=== PATIENT | male | born 1945 | race Caucasian/White ===

== ENCOUNTER 2022-01-23 17:07 | Observation (INO) ==
--- NOTE | 2022-01-23 17:57 | Emergency Department Note ---
Impression & Plan Mood disorder, Hyponatremia ED Provider Note INFORMANT: Patient and ED PROVIDER(S): Doni Kruger MD CHIEF COMPLAINT: Severe depression PLAN: Disposition: Admission to internal medicine Condition: Good Outpatient prescription management: none Referral: None MEDICAL DECISION MAKING: Patient presented because of complaints of severe depression. He had a medical work-up initiated including head CT, chest x-ray, EKG and blood work. Toxicology screen and urinalysis performed as well. The patient's head CT and chest x-ray were unremarkable. ECG did not reveal any acute findings. The patient had unremarkable laboratory studies except for his sodium which was noted to be low. Patient noted a remote history of hyponatremia albeit just under normal per the . In light of his symptoms and findings it was felt that the patient would benefit from medicine admission and psychiatric consultation as he would not be eligible for direct inpatient psychiatric admission in light of the hyponatremia. Consultation was made with Dr. Luis Miguel Corrales of the [facility] service. Patient was evaluated in the ER for further management. Triage Nursing notes reviewed and agree them. Vital Signs: reviewed and remarkable for mild hypertension Differential diagnosis: Mood disorder, infection, hypoglycemia, electrolyte abnormalities, cardiac sources, intracerebral event, toxicologic, trauma, neurologic, as well as other pathologies. Diagnostics interpreted by me: ECG: Twelve-lead ECG reveals normal sinus rhythm at [address] elevation or depression. No PACs or PVCs. Cardiac Monitoring: none Imaging studies: Head CT: A noncontrast CT scan of the head was performed and was negative for tumor, fracture, intracranial hemorrhage, or other acute pathology. Chest x-ray. Findings: A chest x-ray was performed and revealed no pneumothorax, effusion, infiltrate, pulmonary edema, free air under the diap hragm, or wide mediastinum. Impression: No acute disease. HPI: The patient is a 76 year old male who presents to the Emergency Room with complaints of severe depression. This started a few months ago and is worsening over the last week. The patient also notes the following associated symptoms, poor concentration, no energy, poor sleep, decreased appetite, fleeting thoughts of SI, being afraid to be alone. The patient has been taking Zoloft unsuccessf ully for relieving factors. Current pain is rated as 0/10. pt denies LOC, headache, fevers, chills, diaphoresis, visual changes, neck pain, chest pain, breathing difficulties, nausea, vomiting, abdominal pain, back pain, melena, hematochezia, urinary symptoms, numbness, weakness, lymphadenopathy, rash, or other complaints. ROS: See above HPI for pertinent positives & negatives. A total of 10 systems reviewed and were otherwise negative. PAST MEDICAL HISTORY:See Below , legally blind, optic neuritis, A. fib, hypertension PAST SURGICAL HISTORY:See Below, FAMILY HISTORY:See Below SOCIAL HISTORY:See Below, , retired HOME MEDICATIONS:See Below ALLERGIES:See Below VITALS:See Below PHYSICAL EXAMINATION: GENERAL: Awake, alert, well-appearing, in no distress HENT: Normocephalic, atraumatic. Oropharynx unremarkable. EYES: Normal conjunctiva. Sclera non-icteric. NECK: Inspection normal. Non-tender. Supple. No nuchal rigidity. FROM. No mas ses. RESPIRATORY: Clear to auscultation. No wheezes. No rales. Normal respiratory effort. CARDIAC: Normal rate. Normal rhythm. No murmurs. No rubs. Extremities warm and well perfused. Pulses equal. No JVD. GI: Soft, non-distended. No tenderness to palpation. No rebound or guarding. No masses. RECTAL: Deferred. MUSCULOSKELETAL: Atraumatic. Chest examination reveals no tenderness. The back is symmetrical on inspection without obvious abnormality. There is no CVA tenderness to palpation. No joint edema. LOWER EXTREMITIES: Calves are equal size bilaterally and non-tender. No edema. No discoloration. NEURO: Normal sensorium. No sensory or motor deficits noted. SKIN: No rash or jaundice noted. PSYCH: Depressed mood and flat affect. Vague SI. No hallucinations or delusions. Doni Kruger MD Past Med/Surg History Medical History (Updated 01/24/22 @ 00:26 by Doni Kruger MD) AAION (arteritic anterior ischemic optic neuropathy), both eyes Afib dx 2013 > no pacer > med controlled > Eliquis for this as well Anemia Anticoagulant long-term use Anxiety Asthma well controlled per pt > no res inh BPH (benign prostatic hyperplasia) Excessive daytime sleepiness Glaucoma Hiatal hernia HTN (hypertension) Mitral valve regurgitation follows with Dr. Peacock Osteoporosis PFO (patent foramen ovale) pt unaware of this Sleep apnea cpap Surgical History History of cataract surgery History of colonoscopy History of tooth extraction Right wrist fracture with surgical correction Status post right shoulder hemiarthroplasty Family History Father Hypertension Mother Pacemaker Uncle Colon cancer Grandmother Diabetes Social History Smoking Status: Never smoker Second Hand Exposure: No; Hx Alcohol Use: No Hx Substance Use: No Preferred Language: Kyrgyz Communication Ability: Effective Fur Blower Operator Required: No Beliefs That Will Affect Care: None marital status: Current Living Situation: Spouse current occupational status: retired Feels Safe at Home: Yes Assistive Devices: Cane, CPAP, Glasses and Hearing Aid - Left Allergies Allergies Allergy/AdvReac Type Severity Reaction Status Date / Time alendronate sodium Allergy Rash Verified 10/12/21 06:25 Home Meds Home Medications Medication Instructions Recorded Confirmed alprazolam 0.25 mg tablet 0.25 mg PO DAILY PRN Anxiety 05/04/21 01/23/22 apixaban 5 mg tablet (Eliquis) 5 mg PO BID 05/04/21 01/23/22 calcium citrate 315 mg 1 tab PO QAM 05/04/21 01/23/22 calcium-vitamin D3 6.25 mcg (250 unit) tablet (Citracal + Vitamin D Maximum) clopidogrel 75 mg tablet 75 mg PO QAM 05/04/21 01/23/22 dronedarone 400 mg tablet (Multaq) 400 mg PO BID 05/04/21 01/23/22 latanoprost 0.005 % eye drops 1 drp ophthalmic (eye) PM 05/04/21 01/23/22 montelukast 10 mg tablet 10 mg PO QAM 05/04/21 01/23/22 nystatin-triamcinolone 100,000 1 applic topical DAILY PRN Rash 05/04/21 01/23/22 unit/g-0.1 % topical cream pentoxifylline 400 mg 400 mg PO BID 05/04/21 01/23/22 tablet,extended release rosuvastatin 10 mg tablet 10 mg PO HS 05/04/21 01/23/22 sertraline 100 mg tablet 50 mg PO QAM 05/04/21 01/23/22 tamsulosin 0.4 mg capsule 0.4 mg PO HS 05/04/21 01/23/22 vit 1 cap PO BID 05/04/21 01/23/22 C,E,zinc,Qt-kaycz-7-lutein-zeaxanthin 250 mg-2.5 mg-0.5 mg capsule benazepril 40 mg tablet 20 mg PO BID 09/16/21 01/23/22 coenzyme Q10 100 mg capsule (Co 100 mg PO QAM 09/16/21 01/23/22 Q-10) melatonin 3 mg tablet 3 mg PO HS 09/16/21 01/23/22 metoprolol succinate 25 mg 25 mg PO PM 09/16/21 01/23/22 tablet,extended release 24 hr omega-3 fatty acids 1,000 mg PO QAM 09/16/21 01/23/22 omeprazole 40 mg capsule,delayed 40 mg PO HS 09/16/21 01/23/22 release zinc oxide applic topical BID 01/23/22 Results & Data (ED) Vital Signs Vital Signs - 24 hr 01/23/22 17:11 01/23/22 19:08 Temperature 36.7 C Temperature Source Temporal Artery Scan Pulse Rate 76 Pulse Rate [Apical] 66 Pulse Rhythm Regular Pulse Rhythm [Apical] Regular Pulse Strength Normal Pulse Strength [Apical] Normal Respiratory Rate 22 18 Respiratory Effort / Characteristics Non-Labored Spontaneous Non-Labored Respiratory Depth Normal Normal Respiratory Pattern Regular Regular Blood Pressure 154/95 H Blood Pressure [Right Arm] 164/83 H Blood Pressure Mean 114 Blood Pressure Mean [Right Arm] 110 Blood Pressure Position Sitting Blood Pressure Position [Right Arm] Lying Pulse Oximetry 97 96 Oxygen Delivery Method Room Air Room Air Sepsis Recent Fever Within 48 Hours No Sepsis New/Unexplained Change in Mental Status N/A Sepsis Action Taken by Nursing No Action Required Laboratory Data Result diagrams: 01/23/22 17:55 01/23/22 17:55 Lab Results 01/23/22 01/23/22 01/23/22 Range/Units 17:30 17:30 17:30 WBC (4.8-10.8) K/ul RBC (4.63-6.08) M/uL Hgb (14.0-18.0) g/dl Hct (40.1-51.0) % MCV (80.0-100.0) fL MCH (25.0-34.0) pg MCHC (32.0-36.0) g/dL RDW Std Deviation (36.4-46.3) fL RDW Coeff of David (11.5-14.5) % Plt Count (130-400) K/uL MPV (9.4-12.4) fL Immature Gran % (Auto) % Neut % (Auto) % Lymph % (Auto) % [place] % (Auto) % Eos % (Auto) % Baso % (Auto) % Neut # (Auto) (1.4-6.5) K/uL Lymph # (Auto) (1.2-3.4) K/uL [place] # (Auto) (0.24-0.82) K/uL Eos # (Auto) (0-0.50) K/uL Baso # (Auto) (0-0.2) K/uL Immature Gran # (Auto) (0.00-0.02) K/uL Sodium (136-145) mmol/L Potassium (3.5-5.1) mmol/L Chloride (98-107) mmol/L Carbon Dioxide (21-32) mmol/L Anion Gap (3-11) BUN (6-23) mg/dl Creatinine (0.6-1.4) mg/dl Est Cr Clr Drug Dosing ml/min Est GFR ( Amer) ml/min Est GFR (Non-Af Amer) ml/min BUN/Creatinine Ratio (10-20) Glucose (70-99(Fasting)) mg/dl Osmolality (280-300) mOsm/kg Calcium (8.5-10.1) mg/dl Total Bilirubin (0.2-1.0) mg/dl AST (13-39) U/L ALT (7-52) U/L Alkaline Phosphatase (34-104) U/L Total Protein (6.0-8.3) gm/dl Albumin (3.4-5.0) gm/dl Globulin (2.5-4.0) gm/dl Albumin/Globulin Ratio (0.9-2) TSH (0.300-4.500) uIu/ml Urine Color Yellow Urine Appearance Clear (Clear) Urine pH 7.0 (4.5-7.5) Ur Specific [place] 1.012 (1.000-1.030) Urine Protein Negative (Negative) Urine Glucose (UA) Negative (Negative) Urine Ketones Negative (Negative) Urine Blood Negative (Negative) Urine Nitrite Negative (Negative) Urine Bilirubin Negative (Negative) Urine Urobilinogen Negative (Negative) Ur Leukocyte Esterase Trace H (Negative) Urine WBC (Auto) 1-5 (0-5) /hpf Urine RBC (Auto) 5-10 H (0-4) /hpf U Hyaline Cast (Auto) 0 (0-5) /lpf U Epithel Cells (Auto) 0-5 (0-5) /lpf Urine Bacteria (Auto) Negative (Negative) Urine Osmolality (500-800) mOsm/kg Ur Random Creatinine 59.4 mg/dl Ur Random Sodium 102 mmol/L Salicylates (3.0-30) mg/dl Urine Opiates Screen Neg (Neg) Ur Methadone, Qual Neg (Neg) Acetaminophen (10-30) ug/ml Urine Barbiturates Neg (Neg) Ur Phencyclidine (PCP) Neg (Neg) U Amphetamin/Meth Scrn Neg (Neg) MDMA (Ecstasy) Screen Neg (Neg) U Benzodiazepines Scrn Neg (Neg) Ur Cocaine Metabolite Neg (Neg) U Marijuana (THC) Screen Neg (Neg) Ethyl Alcohol mg/dL (<10.0) mg/dl SARS-CoV-2, RNA, NAAT (NEGATIVE) 01/23/22 01/23/22 01/23/22 Range/Units 17:30 17:45 17:55 WBC 8.68 (4.8-10.8) K/ul RBC 4.40 L (4.63-6.08) M/uL Hgb 13.1 L (14.0-18.0) g/dl Hct 37.0 L (40.1-51.0) % MCV 84.1 (80.0-100.0) fL MCH 29.8 (25.0-34.0) pg MCHC 35.4 (32.0-36.0) g/dL RDW Std Deviation 43.9 (36.4-46.3) fL RDW Coeff of David 14.4 (11.5-14.5) % Plt Count 159 (130-400) K/uL MPV 10.8 (9.4-12.4) fL Immature Gran % (Auto) 0.5 % Neut % (Auto) 69.9 % Lymph % (Auto) 21.4 % [place] % (Auto) 6.2 % Eos % (Auto) 1.7 % Baso % (Auto) 0.3 % Neut # (Auto) 6.06 (1.4-6.5) K/uL Lymph # (Auto) 1.86 (1.2-3.4) K/uL [place] # (Auto) 0.54 (0.24-0.82) K/uL Eos # (Auto) 0.15 (0-0.50) K/uL Baso # (Auto) 0.03 (0-0.2) K/uL Immature Gran # (Auto) 0.04 H (0.00-0.02) K/uL Sodium (136-145) mmol/L Potassium (3.5-5.1) mmol/L Chloride (98-107) mmol/L Carbon Dioxide (21-32) mmol/L Anion Gap (3-11) BUN (6-23) mg/dl Creatinine (0.6-1.4) mg/dl Est Cr Clr Drug Dosing ml/min Est GFR ( Amer) ml/min Est GFR (Non-Af Amer) ml/min BUN/Creatinine Ratio (10-20) Glucose (70-99(Fasting)) mg/dl Osmolality (280-300) mOsm/kg Calcium (8.5-10.1) mg/dl Total Bilirubin (0.2-1.0) mg/dl AST (13-39) U/L ALT (7-52) U/L Alkaline Phosphatase (34-104) U/L Total Protein (6.0-8.3) gm/dl Albumin (3.4-5.0) gm/dl Globulin (2.5-4.0) gm/dl Albumin/Globulin Ratio (0.9-2) TSH (0.300-4.500) uIu/ml Urine Color Urine Appearance (Clear) Urine pH (4.5-7.5) Ur Specific [place] (1.000-1.030) Urine Protein (Negative) Urine Glucose (UA) (Negative) Urine Ketones (Negative) Urine Blood (Negative) Urine Nitrite (Negative) Urine Bilirubin (Negative) Urine Urobilinogen (Negative) Ur Leukocyte Esterase (Negative) Urine WBC (Auto) (0-5) /hpf Urine RBC (Auto) (0-4) /hpf U Hyaline Cast (Auto) (0-5) /lpf U Epithel Cells (Auto) (0-5) /lpf Urine Bacteria (Auto) (Negative) Urine Osmolality 408 L (500-800) mOsm/kg Ur Random Creatinine mg/dl Ur Random Sodium mmol/L Salicylates (3.0-30) mg/dl Urine Opiates Screen (Neg) Ur Methadone, Qual (Neg) Acetaminophen (10-30) ug/ml Urine Barbiturates (Neg) Ur Phencyclidine (PCP) (Neg) U Amphetamin/Meth Scrn (Neg) MDMA (Ecstasy) Screen (Neg) U Benzodiazepines Scrn (Neg) Ur Cocaine Metabolite (Neg) U Marijuana (THC) Screen (Neg) Ethyl Alcohol mg/dL (<10.0) mg/dl SARS-CoV-2, RNA, NAAT NEGATIVE (NEGATIVE) 01/23/22 01/23/22 01/23/22 Range/Units 17:55 17:55 17:55 WBC (4.8-10.8) K/ul RBC (4.63-6.08) M/uL Hgb (14.0-18.0) g/dl Hct (40.1-51.0) % MCV (80.0-100.0) fL MCH (25.0-34.0) pg MCHC (32.0-36.0) g/dL RDW Std Deviation (36.4-46.3) fL RDW Coeff of David (11.5-14.5) % Plt Count (130-400) K/uL MPV (9.4-12.4) fL Immature Gran % (Auto) % Neut % (Auto) % Lymph % (Auto) % [place] % (Auto) % Eos % (Auto) % Baso % (Auto) % Neut # (Auto) (1.4-6.5) K/uL Lymph # (Auto) (1.2-3.4) K/uL [place] # (Auto) (0.24-0.82) K/uL Eos # (Auto) (0-0.50) K/uL Baso # (Auto) (0-0.2) K/uL Immature Gran # (Auto) (0.00-0.02) K/uL Sodium 129 L (136-145) mmol/L Potassium 3.8 (3.5-5.1) mmol/L Chloride 98 (98-107) mmol/L Carbon Dioxide 22 (21-32) mmol/L Anion Gap 9 (3-11) BUN 14 (6-23) mg/dl Creatinine 1.08 (0.6-1.4) mg/dl Est Cr Clr Drug Dosing 61.0 ml/min Est GFR ( Amer) 76.3 ml/min Est GFR (Non-Af Amer) 65.9 ml/min BUN/Creatinine Ratio 13.0 (10-20) Glucose 114 H (70-99(Fasting)) mg/dl Osmolality (280-300) mOsm/kg Calcium 9.2 (8.5-10.1) mg/dl Total Bilirubin 0.6 (0.2-1.0) mg/dl AST 17 (13-39) U/L ALT 19 (7-52) U/L Alkaline Phosphatase 73 (34-104) U/L Total Protein 6.7 (6.0-8.3) gm/dl Albumin 4.1 (3.4-5.0) gm/dl Globulin 2.6 (2.5-4.0) gm/dl Albumin/Globulin Ratio 1.6 (0.9-2) TSH 3.489 (0.300-4.500) uIu/ml Urine Color Urine Appearance (Clear) Urine pH (4.5-7.5) Ur Specific [place] (1.000-1.030) Urine Protein (Negative) Urine Glucose (UA) (Negative) Urine Ketones (Negative) Urine Blood (Negative) Urine Nitrite (Negative) Urine Bilirubin (Negative) Urine Urobilinogen (Negative) Ur Leukocyte Esterase (Negative) Urine WBC (Auto) (0-5) /hpf Urine RBC (Auto) (0-4) /hpf U Hyaline Cast (Auto) (0-5) /lpf U Epithel Cells (Auto) (0-5) /lpf Urine Bacteria (Auto) (Negative) Urine Osmolality (500-800) mOsm/kg Ur Random Creatinine mg/dl Ur Random Sodium mmol/L Salicylates < 3.0 L (3.0-30) mg/dl Urine Opiates Screen (Neg) Ur Methadone, Qual (Neg) Acetaminophen < 3 L (10-30) ug/ml Urine Barbiturates (Neg) Ur Phencyclidine (PCP) (Neg) U Amphetamin/Meth Scrn (Neg) MDMA (Ecstasy) Screen (Neg) U Benzodiazepines Scrn (Neg) Ur Cocaine Metabolite (Neg) U Marijuana (THC) Screen (Neg) Ethyl Alcohol mg/dL (<10.0) mg/dl SARS-CoV-2, RNA, NAAT (NEGATIVE) 01/23/22 01/23/22 Range/Units 17:55 17:55 WBC (4.8-10.8) K/ul RBC (4.63-6.08) M/uL Hgb (14.0-18.0) g/dl Hct (40.1-51.0) % MCV (80.0-100.0) fL MCH (25.0-34.0) pg MCHC (32.0-36.0) g/dL RDW Std Deviation (36.4-46.3) fL RDW Coeff of David (11.5-14.5) % Plt Count (130-400) K/uL MPV (9.4-12.4) fL Immature Gran % (Auto) % Neut % (Auto) % Lymph % (Auto) % [place] % (Auto) % Eos % (Auto) % Baso % (Auto) % Neut # (Auto) (1.4-6.5) K/uL Lymph # (Auto) (1.2-3.4) K/uL [place] # (Auto) (0.24-0.82) K/uL Eos # (Auto) (0-0.50) K/uL Baso # (Auto) (0-0.2) K/uL Immature Gran # (Auto) (0.00-0.02) K/uL Sodium (136-145) mmol/L Potassium (3.5-5.1) mmol/L Chloride (98-107) mmol/L Carbon Dioxide (21-32) mmol/L Anion Gap (3-11) BUN (6-23) mg/dl Creatinine (0.6-1.4) mg/dl Est Cr Clr Drug Dosing ml/min Est GFR ( Amer) ml/min Est GFR (Non-Af Amer) ml/min BUN/Creatinine Ratio (10-20) Glucose (70-99(Fasting)) mg/dl Osmolality 269 L (280-300) mOsm/kg Calcium (8.5-10.1) mg/dl Total Bilirubin (0.2-1.0) mg/dl AST (13-39) U/L ALT (7-52) U/L Alkaline Phosphatase (34-104) U/L Total Protein (6.0-8.3) gm/dl Albumin (3.4-5.0) gm/dl Globulin (2.5-4.0) gm/dl Albumin/Globulin Ratio (0.9-2) TSH (0.300-4.500) uIu/ml Urine Color Urine Appearance (Clear) Urine pH (4.5-7.5) Ur Specific [place] (1.000-1.030) Urine Protein (Negative) Urine Glucose (UA) (Negative) Urine Ketones (Negative) Urine Blood (Negative) Urine Nitrite (Negative) Urine Bilirubin (Negative) Urine Urobilinogen (Negative) Ur Leukocyte Esterase (Negative) Urine WBC (Auto) (0-5) /hpf Urine RBC (Auto) (0-4) /hpf U Hyaline Cast (Auto) (0-5) /lpf U Epithel Cells (Auto) (0-5) /lpf Urine Bacteria (Auto) (Negative) Urine Osmolality (500-800) mOsm/kg Ur Random Creatinine mg/dl Ur Random Sodium mmol/L Salicylates (3.0-30) mg/dl Urine Opiates Screen (Neg) Ur Methadone, Qual (Neg) Acetaminophen (10-30) ug/ml Urine Barbiturates (Neg) Ur Phencyclidine (PCP) (Neg) U Amphetamin/Meth Scrn (Neg) MDMA (Ecstasy) Screen (Neg) U Benzodiazepines Scrn (Neg) Ur Cocaine Metabolite (Neg) U Marijuana (THC) Screen (Neg) Ethyl Alcohol mg/dL < 10.0 (<10.0) mg/dl SARS-CoV-2, RNA, NAAT (NEGATIVE) Administered Medications Sodium Chloride (Nss 1000ml) 1,000 mls @ 125 mls/hr IV .Q8H MANJIT Stop: 01/24/22 04:29 Last Admin: 01/23/22 21:22 Dose: 125 mls/hr Documented By: RSL Discontinued Medications Sodium Chloride (Nss 1000ml) 1,000 mls @ 999 mls/hr IV .Q1H1M ONE Stop: 01/23/22 21:05 Last Infusion: 01/23/22 21:22 Dose: 0 mls/hr Documented By: Admin: 01/23/22 20:36 Dose: 999 mls/hr Documented By: KESHAV Imaging Data Radiologist's Impression: Chest X-Ray 01/23/22 17:43 SINGLE VIEW CHEST CLINICAL HISTORY: Depression. FINDINGS: 2 AP, portable, upright chest radiographs are obtained. No prior studies are available for comparison at the time of dictation. The examination is degraded by portable technique and apical lordotic positioning. The heart is enlarged. The pulmonary vasculature is noncongested. There is mild elevation of the right hemidiaphragm and bibasilar atelectasis. The lungs and pleural spaces are otherwise clear. No pneumothorax is seen. The skeletal structures are osteopenic. The bony thorax is grossly intact. A right shoulder arthroplasty is in place. IMPRESSION: Cardiomegaly with no active disease in the chest. ACT 112: Negative or not required by law. Electronically signed by: Reji Crook M.D. 01/23/2022 5:[address] 01/23/22 17:43 CT SCAN OF THE BRAIN WITHOUT IV CONTRAST CLINICAL HISTORY: Depression. COMPARISON STUDY: No priors. TECHNIQUE: Unenhanced axial CT scan of the brain is performed from the vertex to the skull base. A dose lowering technique was utilized adhering to the principles of ALARA. CT DOSE: 614.27 mGy.cm FINDINGS: Brain parenchyma: There is age-related involutional change noting mild subcortical and periventricular microangiopathic disease. There is no hemorrhage, mass effect, or evidence of acute territorial ischemia by CT criteria. Yap-white matter differentiation is preserved. No extra-axial fluid collection is seen. Ventricles, sulci, cisterns: Prominent secondary to involutional change. Intracranial vasculature: There is atherosclerotic calcification of the cavernous carotid arteries. Calvarium: Unremarkable. Sinuses and mastoids: The visualized paranasal sinuses are clear. The mastoid air cells are well pneumatized. Orbits: The bony orbits are grossly intact. There are bilateral ocular lens implants. IMPRESSION: There is no hemorrhage, mass effect, or evidence of acute territorial ischemia by CT criteria. ACT 112: Negative or not required by law. Electronically signed by: Reji Crook M.D. 01/23/2022 6:55 PM Discharge Plan Visit Data Chief Complaint: Mental Health Evaluation Stated Complaint: UNABLE TO EAT/SLEEP, LOST OF INTEREST. POSS MDD ED Provider: Doni Kruger Discharge Problem: Mood disorder, Hyponatremia Patient Disposition: Admitted As Inpatient Discharge Instructions Interventions: ED Discharge Assessment Last Done: 01/23/22 23:00
[2022-01-23 17:58] LABS: Appearance Urine Clear (Clear); Bacteria Urine Automated Negative (Negative); Bilirubin Urine Negative (Negative); Blood Urine Negative (Negative); Cast Urine Automated 0 /lpf (0-5); Color Urine Yellow; Epithelial Cell Urine Auto 0-5 /lpf (0-5); Glucose Urine UA Negative (Negative); Ketones Urine Negative (Negative); Leukocyte Esterase Urine Trace (Negative); Nitrite Urine Negative (Negative); Protein Urine Negative (Negative); Specific Gravity Urine 1.012 (1.000-1.030); Urobilinogen Urine Negative (Negative)
--- NOTE | 2022-01-23 18:00 | XRay Report ---
SINGLE VIEW CHEST CLINICAL HISTORY: Depression. FINDINGS: 2 AP, portable, upright chest radiographs are obtained. No prior studies are available for comparison at the time of dictation. The examination is degraded by portable technique and apical abbie dotic positioning. The heart is enlarged. The pulmonary vasculature is noncongested. There is mild e levation of the right hemidiaphragm and bibasilar atelectasis. The lungs and pleural spaces are other ramirez clear. No pneumothorax is seen. The skeletal structures are osteopenic. The bony thorax is gross ly intact. A right shoulder arthroplasty is in place. IMPRESSION: Cardiomegaly with no active disease in the chest. ACT 112: Negative or not required by law. Electronically signed by: Reji Crook M.D. 01/23/2022 5:59 PM
[2022-01-23 18:14] LABS: Hemoglobin 13.1 g/dl (14.0-18.0); Mean Corpuscular Hemoglobin 29.8 pg (25.0-34.0); Mean Corpuscular Hgb Conc 35.4 g/dL (32.0-36.0); Mean Corpuscular Volume 84.1 fL (80.0-100.0); Mean Platelet Volume 10.8 fL (9.4-12.4); Platelet Count 159 K/uL (130-400); RDW Coefficient of Variation 14.4 % (11.5-14.5); RDW Standard Deviation 43.9 fL (36.4-46.3); White Blood Count 8.68 K/ul (4.8-10.8)
[2022-01-23 18:15] LABS: Amphetamines+Metham, Urine Neg (Neg); Barbiturates, Urine Neg (Neg); Benzodiazepine, Urine Neg (Neg); Cocaine, Urine Neg (Neg); MDMA (Ecstacy), Urine Neg (Neg); Methadone, Urine Neg (Neg); Opiate, Urine Neg (Neg); Phencyclidine, Urine Neg (Neg)
[2022-01-23 18:30] LABS: Albumin Globulin Ratio 1.6 (0.9-2); Albumin Level 4.1 gm/dl (3.4-5.0); Bilirubin,Total 0.6 mg/dl (0.2-1.0); Calcium 9.2 mg/dl (8.5-10.1); Est GFR (African American) 76.3 ml/min; Est GFR (Non-African American) 65.9 ml/min; Globulin 2.6 gm/dl (2.5-4.0); Potassium 3.8 mmol/L (3.5-5.1); Total Protein 6.7 gm/dl (6.0-8.3)
[2022-01-23 18:34] LABS: Acetaminophen < 3 ug/ml (10-30); Salicylate < 3.0 mg/dl (3.0-30)
[2022-01-23 18:37] LABS: Basophils # (auto) 0.03 K/uL (0-0.2); Basophils % (auto) 0.3 %; Eosinophils # (auto) 0.15 K/uL (0-0.50); Eosinophils % (auto) 1.7 %; Immature Granulocytes # (auto) 0.04 K/uL (0.00-0.02); Immature Granulocytes % (auto) 0.5 %; Lymphocytes # (auto) 1.86 K/uL (1.2-3.4); Lymphocytes % (auto) 21.4 %; Monocytes # (auto) 0.54 K/uL (0.24-0.82); Monocytes % (auto) 6.2 %; Neutrophils # (auto) 6.06 K/uL (1.4-6.5); Neutrophils % (auto) 69.9 %
--- NOTE | 2022-01-23 18:58 | CT Scan Report ---
CT SCAN OF THE BRAIN WITHOUT IV CONTRAST CLINICAL HISTORY: Depression. COMPARISON STUDY: No priors. TECHNIQUE: Unenhanced axial CT scan of the brain is performed from the vertex to the skull base. A do se lowering technique was utilized adhering to the principles of ALARA. CT DOSE: 614.27 mGy.cm FINDINGS: Brain parenchyma: There is age-related involutional change noting mild subcortical and periventricula r microangiopathic disease. There is no hemorrhage, mass effect, or evidence of acute territorial isc hemia by CT criteria. Yap-white matter differentiation is preserved. No extra-axial fluid collection is seen. Ventricles, sulci, cisterns: Prominent secondary to involutional change. Intracranial vasculature: There is atherosclerotic calcification of the cavernous carotid arteries. Calvarium: Unremarkable. Sinuses and mastoids: The visualized paranasal sinuses are clear. The mastoid air cells are well pneu matized. Orbits: The bony orbits are grossly intact. There are bilateral ocular lens implants. IMPRESSION: There is no hemorrhage, mass effect, or evidence of acute territorial ischemia by CT bronson adkins. ACT 112: Negative or not required by law. Electronically signed by: Reji Crook M.D. 01/23/2022 6:55 PM
--- NOTE | 2022-01-23 19:34 | History & Physical Report ---
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 Major Depressive Episode Patient with history of depression, reporting self tapering of sertraline approximately 3 to 4 months ago Restarted sertraline approximately 3 days ago; however, current major depressive episode has been ongoing for about 2 to [address] negative, TSH normal, no other significant metabolic abnormalities other than mildly low Na - do not suspect this is causative of MDE, rather vice versa Consult psychiatry: Appreciate insight/recommendations moving forward Hold alprazolam pending psychiatry evaluation 1:1, safety tray ordered (2) Hyponatremia: Plan: Hypovolemic Hyponatremia Patient presenting with a sodium level of 129 in the context of decreased p.o. intake over the last several days to weeks Primarily suspect hypovolemic hyponatremia based on appearance and his history - RX reviewed - modafanil, sertraline noted - can precipitate SIADH, though lower suspicion this is primary etiology going on right now We will check urine sodium/creatinine, serum/urine osm Give 1 L NSS now, thereafter 80cc/hr x 1L Recheck sodium level at midnight, then in the morning (3) Narcolepsy: Plan: Narcolepsy - History noted in setting of ongoing MDE. - Continue modafanil (4) Afib: Plan: AFib - currently rate and rhythm controlled on arrival - continue Eliquis, metoprolol, dronedarone (5) AAION (arteritic anterior ischemic optic neuropathy), both eyes: Plan: AAION - History noted. Legally blind secondary to this. 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 He reports he self-tapered himself from sertraline 3-4 months ago because his depression was well controlled. His then reports that he slowly had more and more bouts of down mood, loss of interest/energy, feelings of hopelessness/worthlessness. Then, beginning about 2-3 weeks ago, these feelings got very bad. He has significantly reduced his eating/drinking, though has been taking his RX. No diarrhea or vomiting except once on the day [employer]. No SOB. No leg swelling. He does endorse worrying sig nificantly about developing dark thoughts of harming/killing himself, but doesn't endorse any active thoughts now or formal plans of killing himself. He does have a large gun collection at home. No ETOH, drug, or tobacco use currently. Medications reviewed and include alprazolam, apixaban 5 mg twice daily, benazepril, calciumvitamin D, clopidogrel 75 mg, dronedarone 400 mg twice daily, melatonin, metoprolol succinate 25 mg nightly, modafinil, montelukast, omeprazole, pentoxifylline, rosuvastatin, sertraline, tamsulosin. In the ED, patient was found to have mild hypertension but otherwise normal vital signs. Labs were remarkable for mild normocytic anemia 13.1, chemistries revealing sodium 129, BUN 14/creatinine 1.08, blood sugar 114, negative UDS. His chest x-ray demonstrated cardiomegaly without other acute findings. CT of the head was negative. No RX given. Allergies Allergy/AdvReac Type Severity Reaction Status Date / Time alendronate sodium Allergy Rash Verified 10/12/21 06:25 Home Medications Medication Instructions Recorded Confirmed Type alprazolam 0.25 mg tablet 0.25 mg PO DAILY PRN Anxiety 05/04/21 01/23/22 History apixaban 5 mg tablet (Eliquis) 5 mg PO BID 05/04/21 01/23/22 History calcium citrate 315 mg 1 tab PO QAM 05/04/21 01/23/22 History calcium-vitamin D3 6.25 mcg (250 unit) tablet (Citracal + Vitamin D Maximum) clopidogrel 75 mg tablet 75 mg PO QAM 05/04/21 01/23/22 History dronedarone 400 mg tablet (Multaq) 400 mg PO BID 05/04/21 01/23/22 History latanoprost 0.005 % eye drops 1 drp ophthalmic (eye) PM 05/04/21 01/23/22 History montelukast 10 mg tablet 10 mg PO QAM 05/04/21 01/23/22 History nystatin-triamcinolone 100,000 1 applic topical DAILY PRN Rash 05/04/21 01/23/22 History unit/g-0.1 % topical cream pentoxifylline 400 mg 400 mg PO BID 05/04/21 01/23/22 History tablet,extended release rosuvastatin 10 mg tablet 10 mg PO HS 05/04/21 01/23/22 History tamsulosin 0.4 mg capsule 0.4 mg PO HS 05/04/21 01/23/22 History vit 1 cap PO BID 05/04/21 01/23/22 History C,E,zinc,Fz-wnfpc-0-lutein-zeaxanthin 250 mg-2.5 mg-0.5 mg capsule benazepril 40 mg tablet 20 mg PO BID 09/16/21 01/23/22 History coenzyme Q10 100 mg capsule (Co 100 mg PO QAM 09/16/21 01/23/22 History Q-10) melatonin 3 mg tablet 3 mg PO HS 09/16/21 01/23/22 History metoprolol succinate 25 mg 25 mg PO PM 09/16/21 01/23/22 History tablet,extended release 24 hr omega-3 fatty acids 1,000 mg PO QAM 09/16/21 01/23/22 History omeprazole 40 mg capsule,delayed 40 mg PO HS 09/16/21 01/23/22 History release zinc oxide applic topical BID 01/23/22 History sertraline 50 mg tablet 50 mg PO QAM #1 tab 01/24/22 Rx Past Med/Surg History Medical History AAION (arteritic anterior ischemic optic neuropathy), both eyes Afib dx 2013 > no pacer > med controlled > Eliquis for this as well Anemia Anticoagulant long-term use Anxiety Asthma well controlled per pt > no res inh BPH (benign prostatic hyperplasia) Excessive daytime sleepiness Glaucoma Hiatal hernia HTN (hypertension) Mitral valve regurgitation follows with Dr. Peacock Osteoporosis PFO (patent foramen ovale) pt unaware of this Sleep apnea cpap Surgical History History of cataract surgery History of colonoscopy History of tooth extraction Right wrist fracture with surgical correction Status post right shoulder hemiarthroplasty Family History Father Hypertension Mother Pacemaker Uncle Colon cancer Grandmother Diabetes Social History Smoking Status: Never smoker Second Hand Exposure: No; Hx Alcohol Use: Yes Alcohol type: wine Alcohol Intake Frequency: Monthly or Less Hx Substance Use: Yes Last Used Substance Other:: oral CBD 2 weeks ago Preferred Language: Croatian Communication Ability: Effective Sap Manager Required: No Beliefs That Will Affect Care: None marital status: Current Living Situation: Spouse current occupational status: retired Feels Safe at Home: Yes Assistive Devices: Cane and CPAP Assistive Devices Comment: Pt provided with a walker while at [facility] Review of Systems Review of Systems: as per HPI Physical Exam Physical Exam: General: 76-year old male who is alert, oriented, and appears in no acute distress. HEENT: NCAT. - Eyes - Sclera are white, anicteric, and without injection. - Mouth - mucus membranes appear mildly dry - Neck - supple, no appreciable JVD Cardiac: Normal rate and normal rhythm; S1 and S2 present with no murmurs, rubs , or gallops. Pulmonary: Good respiratory effort with symmetric expansion of the chest. No use of accessory muscles. Lungs were clear to auscultation bilaterally with no crac kles or wheezes. Abdominal: Normoactive bowel sounds. Abdomen was soft, nondistended, and non- tender to palpation. Extremities: Upper and lower extremities are warm and well perfused. No peripheral edema in the lower extremities bilaterally Psych: Mental status exam as follows: - Appearance: Patient is well-groomed and appropriately dressed for this situation. No malodor noted. - Behavior: Engaged in our conversation and made good eye-contact; they are cooperative and non-hostile. - Speech: Talkative and speaking spontaneously with moderately increased latency. Appropriate rate, rhythm, and tone. No aphasia or dysarthria. - Mood: Patient describes their mood as " really really dark ". - Affect: Patient's affect is best described as constricted. - Thought process: Linear with some tangentiality. - Thought/Speech Content: Patient endorses passive SI though no delusions. - Cognition: did not assess. - Insight: Patient displays moderate amount of insight into significance of his depression - Judgement: Not assessed Results & Data Results & Data ([facility]) Vital Signs (Past 12 Hours) Vital Signs Temp Pulse Resp BP Pulse Ox O2 Del Method 01/23/22 17:11 36.7 C 76 22 154/95 H 97 Room Air Supervising Physician Co-Signing Physician Notes Attending addendum: I have physically seen this patient, have supervised the medical residents activities, and agree with the H&P unless as otherwise noted. Assessment and Plan: Hyponatremia- Sodium 129 on admission Likely hypovolemic Serum and urine osmolality pending Give a liter normal saline renal, then 80 cc/h Repeat laboratories in a.m. Major depressive disorder/narcolepsy- Medical work-up negative Consult to psychiatry Hold alprazolam until seen by psychiatry Continue sertraline Continue modafinil Atrial fibrillation- Continue Eliquis, metoprolol and dronedarone Remaining orders and notations as noted Resident Activity Tracking Resident Involvement: Resident Care Provided Care Provided: Adult [facility] Medicine
[2022-01-23] MEDS ORDERED: SODIUM CHLORIDE 0.9% 1000ML 1,000 ML IV ONE (20:05)
[2022-01-23 20:26] LABS: Creatinine Urine Random 59.4 mg/dl
[2022-01-23] MEDS ORDERED: SODIUM CHLORIDE 0.9% 1000ML 1,000 ML IV SCH (20:30)
[2022-01-23] MEDS ORDERED: ACETAMINOPHEN 325 MG TAB PO PRN (23:37)
[2022-01-24] MEDS ORDERED: LORazepam 0.5 MG TAB PO STA (00:40)
[2022-01-24 01:14] LABS: BUN Creatinine Ratio 11.2 (10-20); Calcium 8.8 mg/dl (8.5-10.1); Creatinine Clr Calc Pharmacy 61.6 ml/min; Est GFR (African American) 77.2 ml/min; Est GFR (Non-African American) 66.6 ml/min; Potassium 4.1 mmol/L (3.5-5.1)
[2022-01-24] MEDS ORDERED: ALPRAZolam 0.25 MG TABLET PO PRN (01:57)
[2022-01-24] MEDS ORDERED: NYSTATIN/TRIAMCIN CR 15 GM TUBE EXT PRN (01:57)
--- NOTE | 2022-01-24 07:06 | Electrocardiogram Report ---
Test Reason : Blood Pressure : / mmHG Vent. Rate : 072 BPM Atrial Rate : 072 BPM P-R Int : 190 ms QRS Dur : 100 ms QT Int : 434 ms P-R-T Axes : 039 -22 082 degrees QTc Int : 475 ms Normal sinus rhythm Normal ECG No previous ECGs available Confirmed by Jerzy Lipscomb ([id number]) on 01/24/2022 7:06:14 AM Referred By: REFERRED SELF Confirmed By:Sarwat Lipscomb
[2022-01-24 07:16] LABS: Basophils # (auto) 0.03 K/uL (0-0.2); Basophils % (auto) 0.5 %; Eosinophils # (auto) 0.22 K/uL (0-0.50); Eosinophils % (auto) 3.5 %; Hematocrit (blood only) 34.6 % (40.1-51.0); Hemoglobin 11.8 g/dl (14.0-18.0); Immature Granulocytes # (auto) 0.01 K/uL (0.00-0.02); Immature Granulocytes % (auto) 0.2 %; Lymphocytes # (auto) 1.81 K/uL (1.2-3.4); Lymphocytes % (auto) 29.1 %; Mean Corpuscular Hemoglobin 29.6 pg (25.0-34.0); Mean Corpuscular Hgb Conc 34.1 g/dL (32.0-36.0); Mean Corpuscular Volume 86.9 fL (80.0-100.0); Mean Platelet Volume 11.2 fL (9.4-12.4); Monocytes # (auto) 0.48 K/uL (0.24-0.82); Monocytes % (auto) 7.7 %; Neutrophils # (auto) 3.67 K/uL (1.4-6.5); Platelet Count 146 K/uL (130-400); RDW Coefficient of Variation 14.6 % (11.5-14.5); RDW Standard Deviation 46.5 fL (36.4-46.3); Red Blood Count 3.98 M/uL (4.63-6.08); White Blood Count 6.22 K/ul (4.8-10.8)
[2022-01-24 07:35] LABS: BUN Creatinine Ratio 12.5 (10-20); Calcium 8.5 mg/dl (8.5-10.1); Creatinine Clr Calc Pharmacy 65.6 ml/min
[2022-01-24] MEDS ORDERED: DRONEDARONE HCL 400 MG TAB PO SCH (08:00)
[2022-01-24] MEDS ORDERED: PENTOXIFYLLINE 400MG EXT REL TAB PO SCH (08:00)
[2022-01-24] MEDS ORDERED: TRIAMCINOLONE ACET NASAL SPRAY 10.8ML BTL NAE SCH (09:00)
[2022-01-24] MEDS ORDERED: SERTRALINE HCL 50 MG TABLET PO SCH (09:00)
[2022-01-24] MEDS ORDERED: CALCIUM 600MG + VIT D 400 IU TAB PO SCH (09:00)
[2022-01-24] MEDS ORDERED: CLOPIDOGREL BISULFATE 75 MG TAB PO SCH (09:00)
[2022-01-24] MEDS ORDERED: OMEGA-3 (PURIFIED FISH OIL) 1 GM CAP PO SCH (09:00)
[2022-01-24] MEDS ORDERED: NON-FORMULARY MEDICATION (Coenzyme Q10 [Co Q-10] 100 mg Capsule) PO SCH (09:00)
[2022-01-24] MEDS ORDERED: ENALAPRIL MALEATE 10 MG TAB PO SCH (09:00)
[2022-01-24] MEDS ORDERED: MONTELUKAST SODIUM 10 MG TABLET PO SCH (09:00)
[2022-01-24] MEDS ORDERED: APIXABAN 5 MG TABLET PO SCH (09:00)
[2022-01-24] MEDS: SODIUM CHLORIDE 0.65% NA SOLN 45 ML (OCEAN) PRN ×4 (10:30→15:54)
--- NOTE | 2022-01-24 12:05 | Psychiatric Consultation ---
Date of Consultation January 24, 2022 Impression / Recommendations Protective Factors Assessment Employed: No Psych History Chief Complaint depression, hyponatremia History of Present Illness 76 yo male came to ED seeking inpatient treatment for care of depression. Admitted medically, case reviewed with Dr. Brown and liaison. Patient is now medically cleared and agreeable to inpatient psychiatric care. He will be admitted on to . Past Psychiatric History Current Psychiatric Diagnosis: Depression Allergies Allergy/AdvReac Type Severity Reaction Status Date / Time alendronate sodium Allergy Rash Verified 10/12/21 06:25 Home Medications Medication Instructions Recorded Confirmed Type alprazolam 0.25 mg tablet 0.25 mg PO DAILY PRN Anxiety 05/04/21 01/23/22 History apixaban 5 mg tablet (Eliquis) 5 mg PO BID 05/04/21 01/23/22 History calcium citrate 315 mg 1 tab PO QAM 05/04/21 01/23/22 History calcium-vitamin D3 6.25 mcg (250 unit) tablet (Citracal + Vitamin D Maximum) clopidogrel 75 mg tablet 75 mg PO QAM 05/04/21 01/23/22 History dronedarone 400 mg tablet (Multaq) 400 mg PO BID 05/04/21 01/23/22 History latanoprost 0.005 % eye drops 1 drp ophthalmic (eye) PM 05/04/21 01/23/22 History montelukast 10 mg tablet 10 mg PO QAM 05/04/21 01/23/22 History nystatin-triamcinolone 100,000 1 applic topical DAILY PRN Rash 05/04/21 01/23/22 History unit/g-0.1 % topical cream pentoxifylline 400 mg 400 mg PO BID 05/04/21 01/23/22 History tablet,extended release rosuvastatin 10 mg tablet 10 mg PO HS 05/04/21 01/23/22 History sertraline 100 mg tablet 50 mg PO QAM 05/04/21 01/23/22 History tamsulosin 0.4 mg capsule 0.4 mg PO HS 05/04/21 01/23/22 History vit 1 cap PO BID 05/04/21 01/23/22 History C,E,zinc,Ha-yjvuq-1-lutein-zeaxanthin 250 mg-2.5 mg-0.5 mg capsule benazepril 40 mg tablet 20 mg PO BID 09/16/21 01/23/22 History coenzyme Q10 100 mg capsule (Co 100 mg PO QAM 09/16/21 01/23/22 History Q-10) melatonin 3 mg tablet 3 mg PO HS 09/16/21 01/23/22 History metoprolol succinate 25 mg 25 mg PO PM 09/16/21 01/23/22 History tablet,extended release 24 hr omega-3 fatty acids 1,000 mg PO QAM 09/16/21 01/23/22 History omeprazole 40 mg capsule,delayed 40 mg PO HS 09/16/21 01/23/22 History release zinc oxide applic topical BID 01/23/22 History Personal History Living Arrangements: Home Beliefs That Will Affect Care: None Patient History Medical History (Updated 01/24/22 @ 00:26 by Doni Kruger MD) AAION (arteritic anterior ischemic optic neuropathy), both eyes Afib dx 2013 > no pacer > med controlled > Eliquis for this as well Anemia Anticoagulant long-term use Anxiety Asthma well controlled per pt > no res inh BPH (benign prostatic hyperplasia) Excessive daytime sleepiness Glaucoma Hiatal hernia HTN (hypertension) Mitral valve regurgitation follows with Dr. Peacock Osteoporosis PFO (patent foramen ovale) pt unaware of this Sleep apnea cpap Surgical History History of cataract surgery History of colonoscopy History of tooth extraction Right wrist fracture with surgical correction Status post right shoulder hemiarthroplasty Family History Father Hypertension Mother Pacemaker Uncle Colon cancer Grandmother Diabetes Social History Smoking Status: Never smoker Second Hand Exposure: No; Hx Alcohol Use: Yes Alcohol type: wine Alcohol Intake Frequency: Monthly or Less Hx Substance Use: Yes Last Used Substance Other:: oral CBD 2 weeks ago Preferred Language: Northern Irish Communication Ability: Effective Monument Mason Required: No Beliefs That Will Affect Care: None marital status: Current Living Situation: Spouse current occupational status: retired Other Information That Helps Us Care for You: No Feels Safe at Home: Yes and No Is there a partner from a previous relationship who is making you feel unsafe now?: No Any Concerns about Your Family Situation: No Would You Like to Speak to Someone About Your Situation: No Safety Concerns: Feels Safe At This Time Assistive Devices: Glasses Assistive Devices Comment: amplifier hearing aids at home Physical Exam Vital Signs (Past 24 Hours): Last Vital Signs Temp 36.6 C 01/24/22 07:52 Pulse 61 01/24/22 07:52 Resp 18 01/24/22 07:52 BP 118/70 01/24/22 07:52 Pulse Ox 96 01/24/22 07:52 O2 Del Method 01/24/22 07:52 Results & Data (PSY) Medications Administered Alprazolam (Alprazolam 0.25 Mg Tablet) 0.25 mg PO DAILY PRN PRN Reason: Anxiety Stop: 02/23/22 01:56 Last Admin: 01/24/22 08:25 Dose: 0.25 mg Documented By: CELESTINO Apixaban (Apixaban 5 Mg Tablet) 5 mg PO BID [facility] Stop: 02/23/22 08:59 Last Admin: 01/24/22 08:24 Dose: 5 mg Documented By: CELESTINO Calcium/Vitamin D (Calcium 600mg + Vit D 400 Iu Tab) 1 tab PO [facility] Stop: 02/23/22 08:59 Last Admin: 01/24/22 08:25 Dose: 1 tab Documented By: CELESTINO Clopidogrel Bisulfate (Clopidogrel Bisulfate 75 Mg Tab) 75 mg PO [facility] Stop: 02/23/22 08:59 Last Admin: 01/24/22 08:25 Dose: 75 mg Documented By: CELESTINO Dronedarone (Dronedarone Hcl 400 Mg Tab) 400 mg PO BIDM [facility] Stop: 02/23/22 07:59 Last Admin: 01/24/22 08:25 Dose: 400 mg Documented By: CELESTINO Enalapril Maleate (Enalapril Maleate 10 Mg Tab) 20 mg PO BID [facility] Stop: 02/23/22 08:59 Last Admin: 01/24/22 08:25 Dose: 20 mg Documented By: CELESTINO Fish Oil (Rosine-3 (Purified Fish Oil) 1 Gm Cap) [facility] [place]: 02/23/22 08:59 Last Admin: 01/24/22 08:25 Dose: 1 gm Documented By: CELESTINO Montelukast Sodium (Montelukast Sodium 10 Mg Tablet) 10 mg PO [facility] Stop: 02/23/22 08:59 Last Admin: 01/24/22 08:25 Dose: 10 mg Documented By: CELESTINO Pentoxifylline (Pentoxifylline 400mg Ext Rel Tab) 400 mg PO BIDM [facility] Stop: 02/23/22 07:59 Last Admin: 01/24/22 08:25 Dose: 400 mg Documented By: CELESTINO Sertraline HCl (Sertraline Hcl 50 Mg Tablet) 50 mg PO QAM [facility] Stop: 02/23/22 08:59 Last Admin: 01/24/22 08:25 Dose: 50 mg Documented By: CELESTINO Sodium Chloride (Sodium Chloride 0.65% Na Soln 45 Ml ([place])) 2 sprays NA Q1H PRN PRN Reason: nasal congestion/dryness Stop: 02/23/22 07:54 Last Admin: 01/24/22 10:30 Dose: 2 sprays Documented By: CELESTINO Triamcinolone Acetonide (Triamcinolone Acet Nasal [place] 10.8ml Btl) 2 sprays ROXY DAILY [facility] Stop: 02/23/22 08:59 Last Admin: 01/24/22 08:35 Dose: 2 sprays Documented By: CELESTINO Coding Level of Care Code None
--- NOTE | 2022-01-24 14:23 | Communication Note ---
Date of Service: January 24, 2022 By CMS guidelines, a determination that the admission or continued stay is not medically necessary has been made by a member of the UR committee and a ph ysician for this hospital stay, therefore a Code 44 will be completed and the Inpatient admission will be changed to outpatient.
--- NOTE | 2022-01-24 14:26 | Communication Note ---
Date of Service: January 24, 2022 By CMS guidelines, a determination that the admission or continued stay is not medically necessary has been made by a member of the UR committee and shade coleman for this hospital stay, therefore a Code 44 will be completed and the Inpatient admission will be changed to outpatient.
--- NOTE | 2022-01-24 19:14 | Discharge Summary ---
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 He reports he self-tapered himself from sertraline 3-4 months ago because his depression was well controlled. His then reports that he slowly had more and more bouts of down mood, loss of interest/energy, feelings of hopelessness/worthlessness. Then, beginning about 2-3 weeks ago, these feelings got very bad. He has significantly reduced his eating/drinking, though has been taking his RX. No diarrhea or vomiting except once on the day [facility]. No SOB. No leg swelling. He does endorse worrying significantly about developing dark thoughts of harming/killing himself, but doesn't endorse any active thoughts now or formal plans of killing himself. He does have a large gun collection at home. No ETOH, drug, or tobacco use currently. Medications reviewed and include alprazolam, apixaban 5 mg twice daily, benazepril, calciumvitamin D, clopidogrel 75 mg, dronedarone 400 mg twice daily, melatonin, metoprolol succinate 25 mg nightly, modafinil, montelukast, omeprazole, pentoxifylline, rosuvastatin, sertraline, tamsulosin. In the ED, patient was found to have mild hypertension but otherwise normal vital signs. Labs were remarkable for mild normocytic anemia 13.1, chemistries revealing sodium 129, BUN 14/creatinine 1.08, blood sugar 114, negative UDS. His chest x-ray demonstrated cardiomegaly without other acute findings. CT of the head was negative. No RX given. Principal Diagnosis depression, mild hyponatremia Discharge Exam General he is awake and alert pleasant no distress. HEENT normocephalic atraumatic mucous membranes moist. Breathing unlabored no accessory muscle use good effort. Skin shows no rashes no pallor or icterus. Neuro no focal deficits. Discharge Data Allergies Allergy/AdvReac Type Severity Reaction Status Date / Time alendronate sodium Allergy Rash Verified 10/12/21 06:25 Consultations 01/23/22 19:22 ED Decision to Admit Stat 01/23/22 20:24 Consult Psychiatry Routine 01/24/22 00:49 Consult Behavioral Health Liaison Routine Ordered Studies 01/23/22 17:43 CT head/brain wo con Stat Hospital Course (1) Major depression, recurrent: Voluntary commitment, 201 form completed. Discussed with psychiatry, discussed with patient. Applauded his efforts to seek help. Stable for inpatient psychiatry (2) Hyponatremia: His history certainly fits with low solute from poor p.o. intake, he has been e ating more poorly, but still drinking a decent amount of fluidprobably a decent amount of it is simply low solute/dillutional, at the same time his serum and urine awesome's are a bit suggestive of SIADH, and it certainly is not uncommon in his age bracket, as well as with some of his medications. That said, his sodium is improving nicely really just with p.o. intake. Would check it again in 2 to 3 days, and as long as he is in a reasonable range (as an arbitrary line somewhere above 128 with no mental status problems) would simply continue to follow weekly for the short but foreseeable future. Discussed with patient and that even if he has a little bit of SIADH that is medication induced, if its mild hyponatremia and not causing any overt clinical problems, it is probably better for his overall wellbeing to follow the labs but not really change his medications. Total Time Total Time Spent Total Time Spent (In Minutes): Less than 30 Discharge Plan Discharge Items Patient Disposition: Transfer [facility] Reason For Visit: HYPONATREMIA, DEPRESSION Discharge Diagnosis: depression, mild hyponatremia Activity: Resume your previous activity Non-emergency contact: Primary Care Provider and Psychiatrist Call non-emergency contact if: you have any medication questions Follow-up/Referrals: Vini So MD [Primary Care Provider] - Diet: Regular Addtl Attending Provider Instructions: as far as hyponatremia (low sodium) is concerned - fortunately as a "raw level" the sodium is only mildly low and probably not causing any significant symptoms. it appears to be two things playing off of eachother: a) when people are depressed, their appetite gets bad - and sometimes when someone isn't eating well (especially if they're still staying reasonably hydrated, as sounds like was the case with you) that can lead to a low sodium b) the testing on your blood versus urine does suggest that your kidneys may hold on to a little more water than they "should" (a syndrome called "SiADH" - where we make a little too much of the hormone that makes our kidneys retain water). this part of things might be chronic - and might be related to some of your medications. but as we discussed, if things are this mild, it's probably far better for your overall well-being to treat what is actually causing you problems and just keep an eye on the sodium, rather than shuffling meds around to possibly "fix a lab" that isn't actually causing you symptoms. to that end -it's definitely safe to transfer over to the behavioral health unit -we'll have the psychiatrists check labs again tuesday or tuesday; and then roughly once a week for the near future - just to keep an eye on things. while you're in the hospital, if anything surprises us and gets too "off kilter" (such as a sodium below about 128 (note: that's not any "magic line" as much as an arbitrary number, but with things like this there has to be a cutoff somewhere) they can ask us to look things over again; once you're out of the hospital it would be the same story, but Dr So and the [facility] family medicine team looking the numbers over -as you eat more normally/as your depression settles down, it's more than likely that this whole sodium issue will fade to "background noise" or normalize completely Pending Studies at Discharge: No Stand-Alone Forms: [facility] Medications and DC Order Prescriptions: New sertraline 50 mg Tablet 50 mg PO QAM Qty: 1 0RF Continued alprazolam 0.25 mg tablet 0.25 mg PO DAILY PRN (Reason: Anxiety) clopidogrel 75 mg tablet 75 mg PO QAM Eliquis 5 mg tablet 5 mg PO BID calcium citrate-vitamin D3 [Citracal + D Maximum] 315 mg-6.25 mcg (250 unit) tablet 1 tab PO QAM latanoprost 0.005 % drops 1 drp ophthalmic (eye) PM montelukast 10 mg tablet 10 mg PO QAM Multaq 400 mg tablet 400 mg PO BID Rx Instructions: must administer with a meal/food pentoxifylline 400 mg tablet extended release 400 mg PO BID Rx Instructions: must administer with a meal/food rosuvastatin 10 mg tablet 10 mg PO HS tamsulosin 0.4 mg capsule 0.4 mg PO HS vit C,E,Zn,Tq--ufm-zeax 250-2.5-0.5 mg capsule 1 cap PO BID nystatin-triamcinolone 100,000-0.1 unit/g-% cream 1 applic topical DAILY PRN (Reason: Rash) zinc oxide Cream TOPICAL BID Rx Instructions: apply to affected area except scrotum being sure to apply between crack melatonin 3 mg Tablet 3 mg PO HS benazepril 40 mg Tablet 20 mg PO BID coenzyme Q10 [Co Q-10] 100 mg Capsule 100 mg PO QAM omega-3 fatty acids Capsule 1,000 mg PO QAM omeprazole 40 mg Capsule,Delayed Release(Dr/Ec) 40 mg PO HS metoprolol succinate 25 mg Tablet Extended Release 24 Hr 25 mg PO PM Discontinued sertraline 100 mg tablet 50 mg PO QAM Discharge Orders: Discharge Order (Routine); Ordered 01/24/22 Ordered By: Rogelio Brown Admission Data Admit Date/Time: 01/23/22 19:33 Attending Provider: Rogelio Brown Admit Provider: Rogelio Arriola Primary Care Provider: Vini So Other Providers: Priti Shane ; Miriam Vo ; Nena Newell ; Luis Miguel Corrales Coding Level of Care Code D/C DAY MANAGEMENT <30 MINS Diagnoses Major depression, recurrent F33.9 Hyponatremia E87.1
--- NOTE | 2022-01-24 20:50 | Billing Data ---
Date of Service January 24, 2022 Coding Level of Care Code INT OBSERVATION CARE 70M LVL 3
[2022-01-24] MEDS ORDERED: PANTOprazole 40 MG TAB PO SCH (21:00)
[2022-01-24] MEDS ORDERED: ROSUVASTATIN CALCIUM 10 MG TAB PO SCH (21:00)
[2022-01-24] MEDS ORDERED: METOPROLOL SUCC 25MG EXT REL TAB PO SCH (21:00)
[2022-01-24] MEDS ORDERED: MELATONIN 3 MG TAB PO SCH (21:00)
[2022-01-24] MEDS ORDERED: LATANOPROST 0.005% OP SOLN 2.5 ML BTL OP SCH (21:00)
[2022-01-24] MEDS ORDERED: TAMSULOSIN HCL 0.4 MG CAP PO SCH (21:00)
== END 2022-01-24 16:14 | DRG 641 ==
LOC: ED 17:07 → OBSVTOIN 19:33 → INTOOBSV 19:33 → SUATTDRO 19:33 → 3W 19:33

== ENCOUNTER 2022-01-24 16:16 | Inpatient (IN) ==
--- NOTE | 2022-01-24 17:18 | History & Physical ---
Date of Service January 24, 2022 Impression / Recommendations Impression 76 yo male with multiple vegetative symptoms of anxiety, recent worsening of anxiety presented to ED after experiencing SI during a panic attack and was admitted medically for hyponatremia then cleared. MNPR due to age, legally blind (1) Major depression, recurrent: (2) Hyponatremia: (3) Excessive daytime sleepiness: Plan The patient was admitted to the [facility] ([facility] mental health unit) on q15 min checks (behavioral with suicide precautions) for safety. The patient will participate in group, recreational, and milieu therapies and will be of fered additional individual and family sessions as clinically appropriate. Risks/benefits/alternatives reviewed re: current medications, patient will establish baseline on unit and have repeat sodium in 2-3 days if remains on SSRI, otherwise weekly. Patient has had some benefit from Buspar, would be preferrable over benzo Xanax given age/fall risk. Patient did not receive CPAP on the floor and had no issues overnight/did not require O2 so will be prn on return home. He is no longer on modafanil for excessive daytime sleepiness/hx of narcolepsy but not clear if stopped on own 2 months or as directed. Inventory Assets Strengths: intelligent, insightful Needs: local providers, improve coping skills Suicide Risk Level Suicide Risk Level: High-Moderate (q15 min suicide checks) Risk Factors Assessment Male: Yes : Yes Do You Have Access To A Gun?: Yes (multiple) Health Problems: Yes Mental Health Diagnoses: Yes Previous Attempt: No Previous Psychiatric Hospitalization: No Protective Factors Assessment : Yes Supportive Family: Yes Psychiatric History Identifying Data SANCHEZ TIRADO is a 76-year-old M who currently lives in [place], and was admitted on 01/24/22 16:16 on a 201 voluntary commitment for depression. The patient was admitted medically for hyponatremia on 01/23/22 and was transferred upon medical clearance. 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 Tirado recognizes his decline in past 2 months, ongoing adjustment issues to halfway and [place]oc[place]. He stopped taking his intermediate medication Zoloft 4-5 months ago. He didn't feel it was necessary any more but admits that over time he became more depressed. More recently he developed increase in frequency of panic attacks for which he takes Xanax sparingly. In the context of low mood and panic he has developed some suicidal thoughts, no plan or intent. He came to the ED for assessment and was admitted medically. He had restarted Zoloft 2-3 days prior to admission. Case was discussed with Dr. Brown who felt possibly SIADH more likely failure to thrive. He also admitted to taking some of his 's Buspar with some benefit. Mr. Tirado scored 23 on the PHQ-9, scoring 3 on all symptoms (including #9 feeling better off ) except 2 (more than have days) on low energy. He did not endorse feeling bad about himself. 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 He reports that many of his symptoms started when he lost his sight as no longer could drive, hike, etc. Past Psychiatric History Outpatient Services: meds via PCP Previous Psych Admissions: no Do You Have Access To A Gun?: Yes (multiple) History of Previous Suicide Attempt: No Past Medication Trials: mainly reports Zoloft, was started when he lost his sight. Allergies Allergy/AdvReac Type Severity Reaction Status Date / Time alendronate sodium Allergy Rash Verified 10/12/21 06:25 Home Medications Medication Instructions Recorded Confirmed Type alprazolam 0.25 mg tablet 0.25 mg PO DAILY PRN Anxiety 05/04/21 01/23/22 History apixaban 5 mg tablet (Eliquis) 5 mg PO BID 05/04/21 01/23/22 History calcium citrate 315 mg 1 tab PO QAM 05/04/21 01/23/22 History calcium-vitamin D3 6.25 mcg (250 unit) tablet (Citracal + Vitamin D Maximum) clopidogrel 75 mg tablet 75 mg PO QAM 05/04/21 01/23/22 History dronedarone 400 mg tablet (Multaq) 400 mg PO BID 05/04/21 01/23/22 History latanoprost 0.005 % eye drops 1 drp ophthalmic (eye) PM 05/04/21 01/23/22 History montelukast 10 mg tablet 10 mg PO QAM 05/04/21 01/23/22 History nystatin-triamcinolone 100,000 1 applic topical DAILY PRN Rash 05/04/21 01/23/22 History unit/g-0.1 % topical cream pentoxifylline 400 mg 400 mg PO BID 05/04/21 01/23/22 History tablet,extended release rosuvastatin 10 mg tablet 10 mg PO HS 05/04/21 01/23/22 History tamsulosin 0.4 mg capsule 0.4 mg PO HS 05/04/21 01/23/22 History vit 1 cap PO BID 05/04/21 01/23/22 History C,E,zinc,Mm-mqddu-7-lutein-zeaxanthin 250 mg-2.5 mg-0.5 mg capsule benazepril 40 mg tablet 20 mg PO BID 09/16/21 01/23/22 History coenzyme Q10 100 mg capsule (Co 100 mg PO QAM 09/16/21 01/23/22 History Q-10) melatonin 3 mg tablet 3 mg PO HS 09/16/21 01/23/22 History metoprolol succinate 25 mg 25 mg PO PM 09/16/21 01/23/22 History tablet,extended release 24 hr omega-3 fatty acids 1,000 mg PO QAM 09/16/21 01/23/22 History omeprazole 40 mg capsule,delayed 40 mg PO HS 09/16/21 01/23/22 History release zinc oxide applic topical BID 01/23/22 History sertraline 50 mg tablet 50 mg PO QAM #1 tab 01/24/22 Rx Family History Family History of: None Alcohol History Hx of Alcohol Use Over the Past 12 Months: No Smoking Use Smoking Status: Never smoker Substance History denied Personal History Highest Grade Completed: Graduate School (Masters) Employment Status: Retired Marital Status: Number Of Children: 2 Beliefs That Will Affect Care: None Current Legal Problems: No Hx Traumatic Life Events: No Patient History Medical History AAION (arteritic anterior ischemic optic neuropathy), both eyes Afib dx 2013 > no pacer > med controlled > Eliquis for this as well Anemia Anticoagulant long-term use Anxiety Asthma well controlled per pt > no res inh BPH (benign prostatic hyperplasia) Excessive daytime sleepiness Glaucoma Hiatal hernia HTN (hypertension) Mitral valve regurgitation follows with Dr. Peacock Osteoporosis PFO (patent foramen ovale) pt unaware of this Sleep apnea cpap Surgical History History of cataract surgery History of colonoscopy History of tooth extraction Right wrist fracture with surgical correction Status post right shoulder hemiarthroplasty Family History Father Hypertension Mother Pacemaker Uncle Colon cancer Grandmother Diabetes Social History Smoking Status: Never smoker Second Hand Exposure: No; Hx Alcohol Use: Yes Alcohol type: wine Alcohol Intake Frequency: Monthly or Less Hx Substance Use: Yes Last Used Substance Other:: oral CBD 2 weeks ago Preferred Language: Mosotho Communication Ability: Effective Law Firm Consultant Required: No Beliefs That Will Affect Care: None marital status: Current Living Situation: Spouse current occupational status: retired Feels Safe at Home: Yes and No Is there a partner from a previous relationship who is making you feel unsafe now?: No Assistive Devices: Glasses Review of Systems Review of Systems: All systems reviewed & are unremarkable except as noted in HPI & below Physical Exam Psychiatric: Orientation: alert and oriented x 3 Apperance: appropriately dressed and appropriately groomed Eye Contact: + poor eye contact Motor Behavior: no abnormal motor movements Speech: normal rate/rhythm/volume of speech Affect: + depressed affect Mood: + depressed mood Thought Process: goal directed thought process Thought Content: reality based without delusions Suicidal Thoughts: denies suicidal plan and denies suicidal intent; + reports suicidal thoughts Homicidal Thoughts: denies homicidal thoughts Hallucinations: no auditory hallucinations and no visual hallucinations Cognition: attention grossly intact and language grossly intact Estimated Intelligence: consistent with education level Insight: + limited insight Judgement: + limited judgement Exam Statement: A physical exam was performed in the ED by the hospitalist service/Dr. Brown for the purposes of medical clearance. I accept that physical as correct and adequate for the purposes of the inpatient physical exam. Results & Data ([facility]) Laboratory Results see medical admission, reviewed Current Inpatient Medications Current Inpatient Medications: Current Inpatient Medications Apixaban (Apixaban 5 Mg Tablet) 5 mg PO BID MANJIT Stop: 02/23/22 20:59 Clopidogrel Bisulfate (Clopidogrel Bisulfate 75 Mg Tab) 75 mg PO QAM MANJIT Stop: 02/24/22 08:59 Dronedarone (Dronedarone Hcl 400 Mg Tab) 400 mg PO BID MANJIT Stop: 02/23/22 20:59 Fish Oil ([place]-3 (Purified Fish Oil) 1 Gm Cap) 1 gm PO QAM MANJIT Stop: 02/24/22 08:59 Latanoprost (Latanoprost 0.005% Op Soln 2.5 Ml Btl) 1 drops OP PM MANJIT Stop: 02/23/22 20:59 Melatonin (Melatonin 3 Mg Tab) 3 mg PO HS MANJIT Stop: 02/23/22 21:59 Metoprolol Succinate (Metoprolol Succ 25mg Ext Rel Tab) 25 mg PO PM MANJIT Stop: 02/23/22 20:59 Montelukast Sodium (Montelukast Sodium 10 Mg Tablet) 10 mg PO QAM MANJIT Stop: 02/24/22 08:59 Multivitamins/Minerals (Cerovite Adv Formula Tab) 1 tab PO BID MANJIT Stop: 02/23/22 20:59 Non-Formulary Medication (Benazepril) 20 mg PO BID MANJIT Stop: 02/23/22 20:59 Pantoprazole Sodium (Pantoprazole 40 Mg Tab) 40 mg PO HS MANJIT Stop: 02/23/22 21:59 Pentoxifylline (Pentoxifylline 400mg Ext Rel Tab) 400 mg PO BID MANJIT Stop: 02/23/22 20:59 Rosuvastatin Calcium (Rosuvastatin Calcium 10 Mg Tab) 10 mg PO HS MANJIT Stop: 02/23/22 21:59 Sertraline HCl (Sertraline Hcl 50 Mg Tablet) 50 mg PO QAM MANJIT Stop: 02/24/22 08:59 Tamsulosin HCl (Tamsulosin Hcl 0.4 Mg Cap) 0.4 mg PO HS MANJIT Stop: 02/23/22 21:59
[2022-01-24] MEDS ORDERED: ALUMINUM/MAGNESIUM SUSP 30 ML UDC PO PRN (17:28)
[2022-01-24] MEDS ORDERED: hydrOXYzine HCl 25 MG TAB PO PRN (17:46)
[2022-01-24] MEDS ORDERED: SODIUM CHLORIDE 0.65% NA SOLN 45 ML (OCEAN) PRN (17:46)
[2022-01-24] MEDS: Patient's HEIGHT &/or WEIGHT Needed SCH ×3 (18:25→20:06)
[2022-01-24] MEDS ORDERED: PNEUMOCOCCAL POLYSACCHARIDES 25 MCG/0.5 ML VIAL/SYR IM ONE (20:00)
[2022-01-24] MEDS: SODIUM CHLORIDE 0.65% NA SOLN 45 ML (OCEAN) PRN (21:44)
[2022-01-24] MEDS: PENTOXIFYLLINE 400MG EXT REL TAB PO SCH (21:45)
[2022-01-24] MEDS: DRONEDARONE HCL 400 MG TAB PO SCH (21:45)
[2022-01-24] MEDS: ENALAPRIL MALEATE 10 MG TAB PO SCH (21:45)
[2022-01-24] MEDS: PANTOprazole 40 MG TAB PO SCH (21:45)
[2022-01-24] MEDS: APIXABAN 5 MG TABLET PO SCH (21:46)
[2022-01-24] MEDS: METOPROLOL SUCC 25MG EXT REL TAB PO SCH (21:46)
[2022-01-24] MEDS: MELATONIN 3 MG TAB PO SCH (21:46)
[2022-01-24] MEDS: LATANOPROST 0.005% OP SOLN 2.5 ML BTL OP SCH (21:46)
[2022-01-24] MEDS: ROSUVASTATIN CALCIUM 10 MG TAB PO SCH (21:46)
[2022-01-24] MEDS: TAMSULOSIN HCL 0.4 MG CAP PO SCH (21:46)
[2022-01-24] MEDS: CEROVITE ADV FORMULA TAB PO SCH (21:46)
[2022-01-25] MEDS: APIXABAN 5 MG TABLET PO SCH ×2 (09:03→21:10)
[2022-01-25] MEDS: CLOPIDOGREL BISULFATE 75 MG TAB PO SCH (09:04)
[2022-01-25] MEDS: DRONEDARONE HCL 400 MG TAB PO SCH ×2 (09:04→21:10)
[2022-01-25] MEDS: ENALAPRIL MALEATE 10 MG TAB PO SCH ×2 (09:05→21:11)
[2022-01-25] MEDS: OMEGA-3 (PURIFIED FISH OIL) 1 GM CAP PO SCH (09:06)
[2022-01-25] MEDS: MONTELUKAST SODIUM 10 MG TABLET PO SCH (09:06)
[2022-01-25] MEDS: CEROVITE ADV FORMULA TAB PO SCH ×2 (09:07→21:10)
[2022-01-25] MEDS: PENTOXIFYLLINE 400MG EXT REL TAB PO SCH ×2 (09:07→21:10)
[2022-01-25] MEDS: SERTRALINE HCL 50 MG TABLET PO SCH (09:08)
--- NOTE | 2022-01-25 16:36 | Psychiatric Progress Note ---
Date of Service January 25, 2022 Impression / Recommendations Impression 76 yo male with multiple vegetative symptoms of anxiety, recent worsening of anxiety presented to ED after experiencing SI during a panic attack and was admitted medically for hyponatremia then cleared. Diagnostically consistent with major depressive disorder with anxious distress as well as panic attacks. The patient is deemed unstable and requires psychiatric hospitalization for diagnostic clarification, safety and stabilization, medication management and development of further coping skills. MNPR due to age with high community prevalence of COVID-19 infection, legally blind 01/25/22: Remains severely depressed with SI. Recheck na+ tomorrow and then consider titrating sertraline and augmentation with buspar. In past was on sertraline as high as 150mg at one point. 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 Continue sertraline 50mg qd. 01/24/22: The patient was admitted to the [facility] ([facility] mental health unit) on q15 min checks (behavioral with suicide precautions) for safety. The patient will participate in group, recreational, and milieu therapies and will be offered additional individual and family sessions as clinically appropriate. Risks/benefits/alternatives reviewed re: current medications, patient will establish baseline on unit and have repeat sodium in 2-3 days if remains on SSRI, otherwise weekly. Patient has had some benefit from Buspar, would be preferrable over benzo Xanax given age/fall risk. Patient did not receive CPAP on the floor and had no issues overnight/did not require O2 so will be prn on return home. He is no longer on modafanil for excessive daytime sleepiness/hx of narcolepsy but not clear if stopped on own 2 months or as directed. Inventory Assets Strengths: intelligent, insightful Needs: local providers, improve coping skills Suicide Risk Level Suicide Risk Level: High-Moderate (q15 min suicide checks) (severe depression with SI prior to admission but feels safe in the hospital, agrees to let nursing know if SI worsens, changes or he feels unable to remain safe without additional support) Risk Factors Assessment Male: Yes : Yes Do You Have Access To A Gun?: Yes (multiple) Health Problems: Yes Mental Health Diagnoses: Yes Previous Attempt: No Previous Psychiatric Hospitalization: No Protective Factors Assessment : Yes Supportive Family: Yes Interval History Identifying Information SANCHEZ CARTER is a 76-year-old M who currently lives in [place], and was admitted on 01/24/22 16:16 on a 201 voluntary commitment for depression. The patient was admitted medically for hyponatremia on 01/23/22 and was transferred upon medical clearance. Chief Complaint "I don't want to want to ". Review of Systems Sleep Information Total Hours of Sleep: 7.25 Meal Information Percent Meal Consumed - Lunch: 90 Percent Meal Consumed - Dinner: 100 Subjective Subjective Patient was seen & assessed and interval progress reviewed with treatment team nursing and social work. Sanchez continues to have depression and SI. Reviewed his history of depression and that he feels frustrated to be dealing with it again toward the end of his life as he feels he has much to be grateful for and wishes he could appreciate his life and move through the aging process accepting but not wanting to as he currently does. Reviewed various treatment options. He denies any side effects from sertraline so far, has found buspar helpful before for panic and anxiety. Reviewed option to add this and increase sertraline if Na+ level is reassuring tomorrow. Physical Exam Psychiatric Orientation: alert and oriented x 3 Apperance: appropriately dressed and appropriately groomed Eye Contact: + poor eye contact Motor Behavior: no abnormal motor movements Speech: normal rate/rhythm/volume of speech Affect: + depressed affect Mood: + depressed mood Thought Process: goal directed thought process Thought Content: reality based without delusions Suicidal Thoughts: denies suicidal plan and denies suicidal intent; + reports suicidal thoughts Homicidal Thoughts: denies homicidal thoughts Hallucinations: no auditory hallucinations and no visual hallucinations Cognition: attention grossly intact and language grossly intact Estimated Intelligence: consistent with education level Insight: + limited insight Judgement: + limited judgement Vital Signs (Past 24 Hours) Last Vital Signs Temp 37 C 01/25/22 06:52 Pulse 76 01/25/22 06:53 Resp 16 01/25/22 06:52 BP 114/66 01/25/22 06:53 Results & Data ([facility]) Laboratory Results Laboratory Results - last 24 hr 01/25/22 10:50 Hepatitis C Ab (EIA) Pending Hep C Ab Signal/Cutoff Pending Current Inpatient Medications Current Inpatient Medications: Current Inpatient Medications Al Hydrox/Mg Hydrox/Simethicone (Aluminum/Magnesium Susp 30 Ml Udc) 30 ml PO Q4H PRN PRN Reason: GI Upset Stop: 02/23/22 17:27 Last Admin: 01/25/22 01:15 Dose: 30 ml Apixaban (Apixaban 5 Mg Tablet) 5 mg PO BID [facility] Stop: 02/23/22 20:59 Last Admin: 01/25/22 09:03 Dose: 5 mg Clopidogrel Bisulfate (Clopidogrel Bisulfate 75 Mg Tab) 75 mg PO QAM [facility] Stop: 02/24/22 08:59 Last Admin: 01/25/22 09:04 Dose: 75 mg Dronedarone (Dronedarone Hcl 400 Mg Tab) 400 mg PO BID [facility] Stop: 02/23/22 20:59 Last Admin: 01/25/22 09:04 Dose: 400 mg Enalapril Maleate (Enalapril Maleate 10 Mg Tab) 20 mg PO BID [facility] Stop: 02/23/22 20:59 Last Admin: 01/25/22 09:05 Dose: 20 mg Fish Oil (Arco-3 (Purified Fish Oil) 1 Gm Cap) 1 gm PO QAM [facility] Stop: 02/24/22 08:59 Last Admin: 01/25/22 09:06 Dose: 1 gm Hydroxyzine HCl (Hydroxyzine Hcl 25 Mg Tab) 50 mg PO HSZ PRN PRN Reason: Insomnia Stop: 02/23/22 17:45 Last Admin: 01/25/22 01:11 Dose: 50 mg Hydroxyzine HCl (Hydroxyzine Hcl 25 Mg Tab) 25 mg PO Q4H PRN PRN Reason: Anxiety Stop: 02/23/22 17:45 Latanoprost (Latanoprost 0.005% Op Soln 2.5 Ml Btl) 1 drops OP PM [facility] Stop: 02/23/22 20:59 Last Admin: 01/24/22 21:46 Dose: 1 drops Magnesium Hydroxide (Magnesium Hydroxide Susp 30 Ml Udc) 30 ml PO DAILY PRN PRN Reason: Constipation Stop: 02/23/22 17:27 Melatonin (Melatonin 3 Mg Tab) 3 mg PO HS [facility] Stop: 02/23/22 21:59 Last Admin: 01/24/22 21:46 Dose: 3 mg Metoprolol Succinate (Metoprolol Succ 25mg Ext Rel Tab) 25 mg PO PM [facility] Stop: 02/23/22 20:59 Last Admin: 01/24/22 21:46 Dose: 25 mg Montelukast Sodium (Montelukast Sodium 10 Mg Tablet) 10 mg PO QAM [facility] Stop: 02/24/22 08:59 Last Admin: 01/25/22 09:06 Dose: 10 mg Multivitamins/Minerals (Cerovite Adv Formula Tab) 1 tab PO BID [facility] Stop: 02/23/22 20:59 Last Admin: 01/25/22 09:07 Dose: 1 tab Pantoprazole Sodium (Pantoprazole 40 Mg Tab) 40 mg PO HS [facility] Stop: 02/23/22 21:59 Last Admin: 01/24/22 21:45 Dose: 40 mg Pentoxifylline (Pentoxifylline 400mg Ext Rel Tab) 400 mg PO BID [facility] Stop: 02/23/22 20:59 Last Admin: 01/25/22 09:07 Dose: 400 mg Rosuvastatin Calcium (Rosuvastatin Calcium 10 Mg Tab) 10 mg PO HS [facility] Stop: 02/23/22 21:59 Last Admin: 01/24/22 21:46 Dose: 10 mg Sertraline HCl (Sertraline Hcl 50 Mg Tablet) 50 mg PO QAM [facility] Stop: 02/24/22 08:59 Last Admin: 01/25/22 09:08 Dose: 50 mg Sodium Chloride (Sodium Chloride 0.65% Na Soln 45 Ml ([place])) 1 - 2 sprays NA PRN PRN PRN Reason: Nasal Dryness/Congestion Stop: 02/23/22 17:27 Last Admin: 01/24/22 21:44 Dose: 2 sprays Tamsulosin HCl (Tamsulosin Hcl 0.4 Mg Cap) 0.4 mg PO HS [facility] Stop: 02/23/22 21:59 Last Admin: 01/24/22 21:46 Dose: 0.4 mg Post Discharge Appointments Primary Care Physician Name Of Family Doctor: Dr. Doni So
[2022-01-25] MEDS: ROSUVASTATIN CALCIUM 10 MG TAB PO SCH (21:10)
[2022-01-25] MEDS: PANTOprazole 40 MG TAB PO SCH (21:10)
[2022-01-25] MEDS: MELATONIN 3 MG TAB PO SCH (21:10)
[2022-01-25] MEDS: TAMSULOSIN HCL 0.4 MG CAP PO SCH (21:10)
[2022-01-25] MEDS: LATANOPROST 0.005% OP SOLN 2.5 ML BTL OP SCH (21:11)
[2022-01-25] MEDS: METOPROLOL SUCC 25MG EXT REL TAB PO SCH (21:11)
[2022-01-26] MEDS: SODIUM CHLORIDE 0.65% NA SOLN 45 ML (OCEAN) PRN ×2 (03:37→20:36)
[2022-01-26] MEDS: hydrOXYzine HCl 25 MG TAB PO PRN ×2 (03:40→13:16)
[2022-01-26] MEDS: DRONEDARONE HCL 400 MG TAB PO SCH ×2 (08:34→20:35)
[2022-01-26] MEDS: ENALAPRIL MALEATE 10 MG TAB PO SCH ×2 (08:34→20:36)
[2022-01-26] MEDS: APIXABAN 5 MG TABLET PO SCH ×2 (08:34→20:34)
[2022-01-26] MEDS: CLOPIDOGREL BISULFATE 75 MG TAB PO SCH (08:34)
[2022-01-26] MEDS: PENTOXIFYLLINE 400MG EXT REL TAB PO SCH ×2 (08:35→20:38)
[2022-01-26] MEDS: CEROVITE ADV FORMULA TAB PO SCH ×2 (08:35→20:38)
[2022-01-26] MEDS: OMEGA-3 (PURIFIED FISH OIL) 1 GM CAP PO SCH (08:35)
[2022-01-26] MEDS: SERTRALINE HCL 50 MG TABLET PO SCH (08:35)
[2022-01-26] MEDS: MONTELUKAST SODIUM 10 MG TABLET PO SCH (08:35)
--- NOTE | 2022-01-26 15:01 | Hospitalist Consultation ---
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 Initially admitted to medical service due to hyponatremia and subsequently cleared. Reconsulted due to worsening sodium level. 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 At this point his hyponatremia seems to be largely asymptomatic, so don't believe there is a role for hypertonic saline Of note, patient takes sertraline for his depression, which can precipitate/worsen SIADH -- it may be that his SIADH is present despite this medication but it may be worthwhile to consider alternative treatment if sodium continues to worsen or he becomes symptomatic - For now would continue on sertraline if working well for his psych symptoms and see if fluid restriction improves sodium levels Will check repeat BMP now so as to have glucose level as well and calculate corrected sodium if glucose is elevated Recommend limiting fluid intake at this time and liberal salting of food Will follow along Major Depressive Episode Patient with history of depression, reporting self tapering of sertraline approximately 3 to 4 months ago Care per Psychiatry team As above, sertraline may contribute to SIADH/low sodium but for now would not necessarily make changes to meds unless appropriate in the setting of his psychiatric care Narcolepsy - History noted in setting of ongoing MDE. - Continue modafanil AFib - currently rate and rhythm controlled - continue Eliquis, metoprolol, dronedarone AAION - History noted. Legally blind secondary to this. - Continue statin, Plavix HTN - continue enalapril (per formulary), metoprolol Plan Code: FULL Diet: Regular, fluid restriction DVT PPX: On Eliquis (2) Narcolepsy: (3) Afib: (4) AAION (arteritic anterior ischemic optic neuropathy), both eyes: (5) Severe obstructive sleep apnea: (6) HTN (hypertension): Supervising Physician Co-Signing Physician Notes Attending attestation Pt seen and examined in concert with Dr. Christina. In agreement with the documented findings as noted in the resident documentation with any exceptions or additions as noted here. Patient reports no recurrent confusion since hospitalization and chronically unsteady gait for which he uses cane at home, walker in hospital. Denies any significant polydipsia. Is conscientious about salt intake and has been salting his food more liberally since his hospitalization. Histories reviewed as documented above. VS, previous imaging, labs and notes reviewed. On examination, S1/S2 nl RRR no MCG. CTAB. Abd NT/ND BS+ve. CNII-XII grossly intact excepting optic examination which is chronically diminished. Hyponatremia - likely hypovolemic but with probable SIADH component - agree w/ further w/u for underlying organic cause re: cortisol level, as well as checking repeat BMP for corrected sodium in case of glycemic changes. Fluid restriction and libralized sodium consumption encouraged. Else see resident documentation as noted. History of Present Illness Attending Physician: Priti Shane MD History of Present Illness Vincent Tirado is a 76-year-old male with past medical history of A. fib, hypertension, AAION, sleep apnea, major depression who is admitted to behavioral health unit due to MDD with anxious distress and panic attacks. He initially arrived to [facility] due to complaints of persistent and worsening depressed mood and was found to have hyponatremia to 129. As such, he was admitted to medical service for management of his hyponatremia. His lab work on admission did show a urine osmolality of 408 and urine sodium of 102, pointing to likely SIADH. Initially, patient received intravenous fluids due to seemingly hypovolemic state/suspicion of hypovolemic hyponatremia as well. He was also encouraged to increase his p.o. nutrition, as he had admitted to less than ideal nutrition with his depressive episode. His sodium improved from 129 to 134 with the above plan and he was eventually cleared medically and transferred to the behavioral health unit. Today, the patient's sodium was rechecked and found to be 126. In discussing with the patient, he did say that his prior physician in [place] had found low sodium levels in the past and told him that this was a chronic issue for him. Of note, patient has been on sertraline for about 5 years per his report and found it to be significantly helpful for his symptoms. He had self tapered the medication as he believed he did not needed but started to notice increasing depressive symptoms in November. He decided to restart sertraline about 3 to 4 days prior to presentation to the hospital. He shows no signs of current neurologic symptoms including confusion, headache, dizziness, weakness, numbness, tingling, unsteadiness, nausea, vomiting. He does mention having a mild dry cough, which he believes to be related to dry air in the hospital. No fever, chills, abdominal pain, diarrhea, rashes. Allergies Allergy/AdvReac Type Severity Reaction Status Date / Time alendronate sodium Allergy Rash Verified 10/12/21 06:25 Home Medications Medication Instructions Recorded Confirmed Type alprazolam 0.25 mg tablet 0.25 mg PO DAILY PRN Anxiety 05/04/21 01/25/22 History apixaban 5 mg tablet (Eliquis) 5 mg PO BID 05/04/21 01/25/22 History calcium citrate 315 mg 1 tab PO QAM 05/04/21 01/25/22 History calcium-vitamin D3 6.25 mcg (250 unit) tablet (Citracal + Vitamin D Maximum) clopidogrel 75 mg tablet 75 mg PO QAM 05/04/21 01/25/22 History dronedarone 400 mg tablet (Multaq) 400 mg PO BIDM 05/04/21 01/25/22 History latanoprost 0.005 % eye drops 1 drp ophthalmic (eye) PM 05/04/21 01/25/22 History montelukast 10 mg tablet 10 mg PO QPM 05/04/21 01/25/22 History nystatin-triamcinolone 100,000 1 applic topical DAILY PRN Rash 05/04/21 01/25/22 History unit/g-0.1 % topical cream pentoxifylline 400 mg 400 mg PO BIDM 05/04/21 01/25/22 History tablet,extended release rosuvastatin 10 mg tablet 10 mg PO DAILY 05/04/21 01/25/22 History tamsulosin 0.4 mg capsule 0.4 mg PO HS 05/04/21 01/25/22 History benazepril 40 mg tablet 20 mg PO BID 09/16/21 01/25/22 History coenzyme Q10 100 mg capsule (Co 100 mg PO QAM 09/16/21 01/25/22 History Q-10) melatonin 3 mg tablet 3 mg PO HS 09/16/21 01/25/22 History metoprolol succinate 25 mg 25 mg PO PM 09/16/21 01/25/22 History tablet,extended release 24 hr omega-3 fatty acids 1,000 mg PO QAM 09/16/21 01/25/22 History omeprazole 40 mg capsule,delayed 40 mg PO HS 09/16/21 01/25/22 History release sertraline 50 mg tablet 50 mg PO QAM #1 tab 01/24/22 01/25/22 Rx Patient History Medical History AAION (arteritic anterior ischemic optic neuropathy), both eyes Afib dx 2013 > no pacer > med controlled > Eliquis for this as well Anemia Anticoagulant long-term use Anxiety Asthma well controlled per pt > no res inh BPH (benign prostatic hyperplasia) Excessive daytime sleepiness Glaucoma Hiatal hernia HTN (hypertension) Mitral valve regurgitation follows with Dr. Peacock Osteoporosis PFO (patent foramen ovale) pt unaware of this Sleep apnea cpap Surgical History History of cataract surgery History of colonoscopy History of tooth extraction Right wrist fracture with surgical correction Status post right shoulder hemiarthroplasty Family History Father Hypertension Mother Pacemaker Uncle Colon cancer Grandmother Diabetes Social History Smoking Status: Never smoker Second Hand Exposure: No; Hx Alcohol Use: Yes Alcohol type: wine Alcohol Intake Frequency: Monthly or Less Hx Substance Use: Yes Last Used Substance Other:: oral CBD 2 weeks ago Preferred Language: Georgian Communication Ability: Effective Dobie Worker Required: No Beliefs That Will Affect Care: None marital status: Current Living Situation: Spouse current occupational status: retired Feels Safe at Home: Yes Assistive Devices: Cane and CPAP Assistive Devices Comment: Pt provided with a walker while at [facility] Review of Systems Constitutional: no fever, no chills and no sweats Eyes: as per Subjective / HPI Ear, Nose, Mouth, Throat: no dizziness, no nasal congestion, no nasal discharge and no post nasal drip Respiratory: + cough (mild, nonproductive); no chest congestion Cardiovascular: no chest pain, no palpitations and no edema Gastrointestinal: no abdominal pain, no nausea and no vomiting Genitourinary: no dysuria, no difficulty urinating or no urinary incontinence Integumentary: + dry skin; no rash and no skin ulcer Neurologic: no tingling, no numbness, no dizziness and no confusion Psychiatric: + depression; no panic attacks and no confusion Physical Exam Physical Exam: GENERAL: A&Ox3. NAD. HEENT: PERRL, EOMI. Moist mucous membranes. NECK: No JVD. No lymphadenopathy. CHEST/LUNGS: CTAB A/P. No crackles, wheezes, rales, rhonchi. HEART: RRR. No m/g/r. No carotid bruits. ABDOMEN: NT/ND, soft. BS+ x4 EXTREMITIES: No cyanosis, no clubbing, no edema SKIN: Warm and dry. No rashes or lesions. PSYCHIATRIC: Euthymic affect, no SI, no pressured speech, no hallucinations NEUROLOGIC: No FND. Moves all 4 extremities equally. Results & Data Results & Data ([facility]) Vital Signs (Past 12 Hours) Vital Signs Temp Pulse Resp BP 01/26/22 06:49 65 113/64 01/26/22 06:49 36.9 C 55 L 16 140/72 Resident Activity Tracking Resident Involvement: Resident Care Provided Care Provided: Adult Hospital Medicine
[2022-01-26 16:48] LABS: Calcium 9.3 mg/dl (8.5-10.1); Est GFR (African American) 72.3 ml/min; Est GFR (Non-African American) 62.4 ml/min; Potassium 4.5 mmol/L (3.5-5.1)
--- NOTE | 2022-01-26 17:34 | Psychiatric Progress Note ---
Date of Service January 26, 2022 Impression / Recommendations Impression 76 yo male with multiple vegetative symptoms of anxiety, recent worsening of anxiety presented to ED after experiencing SI during a panic attack and was admitted medically for hyponatremia then cleared. Diagnostically consistent with major depressive disorder with anxious distress as well as panic attacks. The patient is deemed unstable and requires psychiatric hospitalization for diagnostic clarification, safety and stabilization, medication management and development of further coping skills. MNPR due to age with high community prevalence of COVID-19 infection, legally blind 01/26/22: Remains severely depressed with SI. Significant worsening of hyponatremia, hospitalist service consulted and appreciate their recommendations-fluid restriction, liberal use of salt and additional labwork ordered for tomorrow. Suspect SIADH which recent re-initiation of sertraline could be contributing to though also history of hyponatremia and sertraline only restarted about 5 days ago. Continue to focus on coping skills as well as pharmacologic options somewhat limited by hyponatremia. 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: (2) Panic attacks: (3) Hyponatremia: (4) Excessive daytime sleepiness: Suicide Risk Level Suicide Risk Level: High-Moderate (q15 min suicide checks) (severe depression with SI prior to admission but feels safe in the hospital, agrees to let nursing know if SI worsens, changes or he feels unable to remain safe without additional support) Risk Factors Assessment Male: Yes : Yes Do You Have Access To A Gun?: Yes (multiple) Health Problems: Yes Mental Health Diagnoses: Yes Previous Attempt: No Previous Psychiatric Hospitalization: No Protective Factors Assessment : Yes Supportive Family: Yes Interval History Identifying Information ADAN CARTER is a 76-year-old M who currently lives in [place], and was admitted on 01/24/22 16:16 on a 201 voluntary commitment for depression. The patient was admitted medically for hyponatremia on 01/23/22 and was transferred upon medical clearance. Chief Complaint "I know it's not good for me to lay in my room but I'm not feeling very good". Review of Systems Sleep Information Total Hours of Sleep: 5.5 Sleep Comments: Received Nasal Saline for nasal congestion and Vistaril for anxiety at 0340 Meal Information Percent Meal Consumed - Breakfast: 100 Percent Meal Consumed - Lunch: 90 Percent Meal Consumed - Dinner: 90 Subjective Subjective Patient was seen & assessed and interval progress reviewed with treatment team nursing and social work. Had difficulty sleeping last night. Mid-day developed some nausea and reported diarrhea to [facility] nurses. Increased anxiety for which he recieved Vistaril prn. Sodium was rechecked and level 126. Contacted hospitalist service to assess hyponatremia and new GI complaints. Adan engaged with hospitalist providers and told me he remains depressed. Discussed plan to avoid further titration of sertraline given hyponatremia for now. Physical Exam Psychiatric Orientation: alert and oriented x 3 Apperance: appropriately dressed and appropriately groomed Eye Contact: + poor eye contact Motor Behavior: no abnormal motor movements Speech: normal rate/rhythm/volume of speech Affect: + depressed affect Mood: + depressed mood Thought Process: goal directed thought process Thought Content: reality based without delusions Suicidal Thoughts: denies suicidal plan and denies suicidal intent; + reports suicidal thoughts Homicidal Thoughts: denies homicidal thoughts Hallucinations: no auditory hallucinations and no visual hallucinations Cognition: attention grossly intact and language grossly intact Estimated Intelligence: consistent with education level Insight: + limited insight Judgement: + limited judgement Vital Signs (Past 24 Hours) Last Vital Signs Temp 36.9 C 01/26/22 06:49 Pulse 65 01/26/22 06:49 Resp 16 01/26/22 06:49 BP 113/64 01/26/22 06:49 Results & Data ([facility]) Laboratory Results Laboratory Results - last 24 hr 01/25/22 01/26/22 01/26/22 10:50 08:43 15:59 Sodium 126 L 126 L Potassium 4.5 Chloride 95 L Carbon Dioxide 25 Anion Gap 6 BUN 17 Creatinine 1.13 Est Cr Clr Drug Dosing 65.0 Est GFR ( Amer) 72.3 Est GFR (Non-Af Amer) 62.4 BUN/Creatinine Ratio 15.0 Glucose 102 H Calcium 9.3 Hepatitis C Ab (EIA) NON-REACTIVE Hep C Ab Signal/Cutoff 0.26 Current Inpatient Medications Current Inpatient Medications: Current Inpatient Medications Al Hydrox/Mg Hydrox/Simethicone (Aluminum/Magnesium Susp 30 Ml Udc) 30 ml PO Q4 H PRN PRN Reason: GI Upset Stop: 02/23/22 17:27 Last Admin: 01/25/22 01:15 Dose: 30 ml Apixaban (Apixaban 5 Mg Tablet) 5 mg PO BID MANJIT Stop: 02/23/22 20:59 Last Admin: 01/26/22 08:34 Dose: 5 mg Clopidogrel Bisulfate (Clopidogrel Bisulfate 75 Mg Tab) 75 mg PO QAM MANJIT Stop: 02/24/22 08:59 Last Admin: 01/26/22 08:34 Dose: 75 mg Dronedarone (Dronedarone Hcl 400 Mg Tab) 400 mg PO BID MANJIT Stop: 02/23/22 20:59 Last Admin: 01/26/22 08:34 Dose: 400 mg Enalapril Maleate (Enalapril Maleate 10 Mg Tab) 20 mg PO BID MANJIT Stop: 02/23/22 20:59 Last Admin: 01/26/22 08:34 Dose: 20 mg Fish Oil ([place]-3 (Purified Fish Oil) 1 Gm Cap) 1 gm PO QAM MANJIT Stop: 02/24/22 08:59 Last Admin: 01/26/22 08:35 Dose: 1 gm Hydroxyzine HCl (Hydroxyzine Hcl 25 Mg Tab) 50 mg PO HSZ PRN PRN Reason: Insomnia Stop: 02/23/22 17:45 Last Admin: 01/25/22 01:11 Dose: 50 mg Hydroxyzine HCl (Hydroxyzine Hcl 25 Mg Tab) 25 mg PO Q4H PRN PRN Reason: Anxiety Stop: 02/23/22 17:45 Last Admin: 01/26/22 13:16 Dose: 25 mg Latanoprost (Latanoprost 0.005% Op Soln 2.5 Ml Btl) 1 drops OP PM MANJIT Stop: 02/23/22 20:59 Last Admin: 01/25/22 21:11 Dose: 1 drops Magnesium Hydroxide (Magnesium Hydroxide Susp 30 Ml Udc) 30 ml PO DAILY PRN PRN Reason: Constipation Stop: 02/23/22 17:27 Melatonin (Melatonin 3 Mg Tab) 3 mg PO HS MANJIT Stop: 02/23/22 21:59 Last Admin: 01/25/22 21:10 Dose: 3 mg Metoprolol Succinate (Metoprolol Succ 25mg Ext Rel Tab) 25 mg PO PM MANJIT Stop: 02/23/22 20:59 Last Admin: 01/25/22 21:11 Dose: 25 mg Montelukast Sodium (Montelukast Sodium 10 Mg Tablet) 10 mg PO QAM MANJIT Stop: 02/24/22 08:59 Last Admin: 01/26/22 08:35 Dose: 10 mg Multivitamins/Minerals (Cerovite Adv Formula Tab) 1 tab PO BID MANJIT Stop: 02/23/22 20:59 Last Admin: 01/26/22 08:35 Dose: 1 tab Pantoprazole Sodium (Pantoprazole 40 Mg Tab) 40 mg PO HS MANJIT Stop: 02/23/22 21:59 Last Admin: 01/25/22 21:10 Dose: 40 mg Pentoxifylline (Pentoxifylline 400mg Ext Rel Tab) 400 mg PO BID MANJIT Stop: 02/23/22 20:59 Last Admin: 01/26/22 08:35 Dose: 400 mg Rosuvastatin Calcium (Rosuvastatin Calcium 10 Mg Tab) 10 mg PO HS MANJIT Stop: 02/23/22 21:59 Last Admin: 01/25/22 21:10 Dose: 10 mg Sertraline HCl (Sertraline Hcl 50 Mg Tablet) 50 mg PO QAM MANJIT Stop: 02/24/22 08:59 Last Admin: 01/26/22 08:35 Dose: 50 mg Sodium Chloride (Sodium Chloride 0.65% Na Soln 45 Ml ([place])) 1 - 2 sprays NA PRN PRN PRN Reason: Nasal Dryness/Congestion Stop: 02/23/22 17:27 Last Admin: 01/26/22 03:37 Dose: 2 sprays Tamsulosin HCl (Tamsulosin Hcl 0.4 Mg Cap) 0.4 mg PO HS MANJIT Stop: 02/23/22 21:59 Last Admin: 01/25/22 21:10 Dose: 0.4 mg Mental Health & Subst Abuse Tx Psychiatrist Name of Psychiatrist: Clarence Bailey Psychiatrist's Date of Appointment with Psychiatrist: 02/08/22 Time of Appointment with Psychiatrist: 10:15am Psychiatric Appointment Comment: [address] [place] [address] Post Discharge Appointments Primary Care Physician Name Of Family Doctor: Dr. Doni So
[2022-01-26] MEDS: LATANOPROST 0.005% OP SOLN 2.5 ML BTL OP SCH (20:37)
[2022-01-26] MEDS: METOPROLOL SUCC 25MG EXT REL TAB PO SCH (20:37)
[2022-01-26] MEDS: PANTOprazole 40 MG TAB PO SCH (20:38)
[2022-01-26] MEDS: MELATONIN 3 MG TAB PO SCH (20:38)
[2022-01-26] MEDS: TAMSULOSIN HCL 0.4 MG CAP PO SCH (20:39)
[2022-01-26] MEDS: ROSUVASTATIN CALCIUM 10 MG TAB PO SCH (20:39)
[2022-01-27] MEDS: SODIUM CHLORIDE 0.65% NA SOLN 45 ML (OCEAN) PRN ×2 (04:39→21:26)
[2022-01-27] MEDS: hydrOXYzine HCl 25 MG TAB PO PRN (04:40)
--- NOTE | 2022-01-27 07:33 | Hospitalist Progress Note ---
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 Initially admitted to medical service due to hyponatremia and subsequently cleared. Reconsulted due to worsening sodium level. 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 At this point his hyponatremia seems to be largely asymptomatic, so don't believe there is a role for hypertonic saline Of note, patient takes sertraline for his depression, which can precipitate/worsen SIADH -- it may be that his SIADH is present despite this medication but it may be worthwhile to consider alternative treatment if sodium continues to worsen or he becomes symptomatic - For now would continue on sertraline if working well for his psych symptoms and see if fluid restriction improves sodium levels - Na= 125 today Recommend limiting fluid intake at this time and liberal salting of food Will start oral salt tabs 3g TID and repeat labs in morning. Major Depressive Episode Patient with history of depression, reporting self tapering of sertraline approximately 3 to 4 months ago Care per Psychiatry team As above, sertraline may contribute to SIADH/low sodium but for now would not necessarily make changes to meds unless appropriate in the setting of his psychiatric care Narcolepsy - History noted in setting of ongoing MDE. - Continue modafanil AFib - currently rate and rhythm controlled - continue Eliquis, metoprolol, dronedarone AAION - History noted. Legally blind secondary to this. - Continue statin, Plavix HTN - continue enalapril (per formulary), metoprolol Plan Code: FULL Diet: Regular, fluid restriction DVT PPX: On Eliquis (2) Narcolepsy: (3) Afib: (4) AAION (arteritic anterior ischemic optic neuropathy), both eyes: (5) Severe obstructive sleep apnea: (6) HTN (hypertension): Admission and Anticipated Discharge Date Admission Date: January 24, 2022 Supervising Physician Co-Signing Physician Notes Attending attestation Pt seen and examined in concert with Sanford Isbell. In agreement with the documented findings as noted in the resident documentation with any exceptions or additions as noted here. Feeling somewhat more energetic today, but also with episode of loose stools and nausea/vomiting in the early part of the day. No gait changes reported. VS, previous imaging, labs and notes reviewed. On examination, S1/S2 nl RRR no MCG. CTAB. Abd NT/ND BS+ve. CNII-XII grossly intact excepting optic examination which is chronically diminished. Hyponatremia, SIADH component - no sign of adrenal insufficiency, thyroid abnormality. Symptoms chronic and sertraline not, so likely not causative in entirety, though may exacerbate. Start sodium tab supplementation, check BMP in AM and this afternoon. Fluid restriction. Nausea/vomiting - single episode following coffee and medication, likely gastroenteritis type sx. H2 therapy, ondansetron and monitor for changes/worsening. Else see resident documentation as noted. 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 Was initially admitted to medicine service due to hyponatremia, found to have urine osmolality of 408 and urine sodium on 102; consistent with SIADH. Was treated with IV fluids due to hypovolemia with concern for hypovolemic hyponatremia and diet improved; sodium went from 129 to 134. Sodium recheck yesterday and found to be 126. No complaints at bedside this morning. Reports that he has been a little nausea. Alert and awake. Review of Systems Constitutional: no fever, no chills and no sweats Ear, Nose, Mouth, Throat: no dizziness, no nasal congestion, no nasal discharge and no post nasal drip Respiratory: + cough (mild, nonproductive); no chest congestion Cardiovascular: no chest pain, no palpitations and no edema Gastrointestinal: no abdominal pain, no nausea and no vomiting Genitourinary: no dysuria, no difficulty urinating or no urinary incontinence Neurologic: no tingling, no numbness, no dizziness and no confusion Physical Exam Physical Exam: Constitutional: well-appearing, no acute distress HEENT: NCAT, no conjunctival injection CV: regular rhythm, no murmur appreciated, extremities well-perfused, no LE edema Resp: CTABL, no wheezes/rales/rhonchi appreciated, no increased work of breathing GI: soft, nondistended, nontender, BS normoactive MSK: no gross deformities appreciated Skin: warm, dry, no rash appreciated Neuro: alert, oriented, no focal neurologic deficit appreciated Results & Data Results & Data ([facility]) Vital Signs (Past 12 Hours) Vital Signs Temp Pulse Pulse Resp BP BP 01/27/22 06:56 61 146/75 H 01/27/22 06:56 36.7 C 65 18 143/71 H 01/26/22 20:40 65 148/91 H 01/26/22 20:00 37.3 C
[2022-01-27 07:54] LABS: BUN Creatinine Ratio 15.7 (10-20); Calcium 9.1 mg/dl (8.5-10.1); Est GFR (African American) 81.8 ml/min; Est GFR (Non-African American) 70.6 ml/min
[2022-01-27] MEDS: CLOPIDOGREL BISULFATE 75 MG TAB PO SCH (08:50)
[2022-01-27] MEDS: APIXABAN 5 MG TABLET PO SCH ×2 (08:50→21:20)
[2022-01-27] MEDS: DRONEDARONE HCL 400 MG TAB PO SCH ×2 (08:51→21:20)
[2022-01-27] MEDS: ENALAPRIL MALEATE 10 MG TAB PO SCH ×2 (08:51→21:20)
[2022-01-27] MEDS: MONTELUKAST SODIUM 10 MG TABLET PO SCH (08:52)
[2022-01-27] MEDS: OMEGA-3 (PURIFIED FISH OIL) 1 GM CAP PO SCH (08:52)
[2022-01-27] MEDS: PENTOXIFYLLINE 400MG EXT REL TAB PO SCH ×2 (08:52→21:25)
[2022-01-27] MEDS: SERTRALINE HCL 50 MG TABLET PO SCH (08:52)
[2022-01-27] MEDS: CEROVITE ADV FORMULA TAB PO SCH ×2 (08:52→21:25)
[2022-01-27] MEDS: SODIUM CHLORIDE 1 GM TABLET PO SCH ×2 (13:13→21:24)
[2022-01-27] MEDS ORDERED: SODIUM CHLORIDE 1 GM TABLET PO SCH (14:00)
[2022-01-27] MEDS: busPIRone 5 MG TAB PO SCH ×2 (15:12→17:27)
[2022-01-27 16:26] LABS: BUN Creatinine Ratio 15.7 (10-20); Calcium 9.2 mg/dl (8.5-10.1); Est GFR (African American) 76.3 ml/min; Est GFR (Non-African American) 65.9 ml/min; Potassium 4.1 mmol/L (3.5-5.1)
--- NOTE | 2022-01-27 17:01 | Psychiatric Progress Note ---
Date of Service January 27, 2022 Impression / Recommendations Impression 76 yo male with multiple vegetative symptoms of anxiety, recent worsening of anxiety presented to ED after experiencing SI during a panic attack and was admitted medically for hyponatremia then cleared. Diagnostically consistent with major depressive disorder with anxious distress as well as panic attacks. The patient is deemed unstable and requires psychiatric hospitalization for diagnostic clarification, safety and stabilization, medication management and development of further coping skills. MNPR due to age with high community prevalence of COVID-19 infection, legally blind 01/27/22: Has felt physically ill, hospitalist service evaluated and suspects possible gastroenteritis vs SSRI side effects and still with worsening hyponatremia. Remains very depressed and very anxious. Reviewed treatment opt ions in light of hyponatremia and he consents to addition of buspar for anxiety. Reviewed side effects including dizziness, GI symptoms, potential for worsening of hyponatremia. Also discussed with hospitalist providers who felt it would be reasonable even in context of hyponatremia and we will continue to trend Na+ and can re-adjust medication options if needed. Attempting to avoid benzodiazepine use given fall risk with baseline of mobility issues and vision changes. 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 Continue with fluid restriction (goal <1500ml per day), salt tabs/zofran/pepcid added by hospitalist service 01/26/22: Appreciate hospitalist involvement and recommendations regarding hyponatremia. Continue with sertraline 50mg qd. Fluid restriction. 01/25/22: Recheck Na+ tomorrow. Continue sertraline 50mg qd. 01/24/22: The patient was admitted to the [facility] ([facility] mental health unit) on q15 min checks (behavioral with suicide precautions) for safety. The patient will participate in group, recreational, and milieu therapies and will be offered additional individual and family sessions as clinically appropriate. Risks/benefits/alternatives reviewed re: current medications, patient will establish baseline on unit and have repeat sodium in 2-3 days if remains on SSRI, otherwise weekly. Patient has had some benefit from Buspar, would be preferrable over benzo Xanax given age/fall risk. Patient did not receive CPAP on the floor and had no issues overnight/did not require O2 so will be prn on return home. He is no longer on modafanil for excessive daytime sleepiness/hx of narcolepsy but not clear if stopped on own 2 months or as directed. Suicide Risk Level Suicide Risk Level: High-Moderate (q15 min suicide checks) (severe depression with SI prior to admission but feels safe in the hospital, agrees to let nursing know if SI worsens, changes or he feels unable to remain safe without additional support) Risk Factors Assessment Male: Yes : Yes Do You Have Access To A Gun?: Yes (multiple) Health Problems: Yes Mental Health Diagnoses: Yes Previous Attempt: No Previous Psychiatric Hospitalization: No Protective Factors Assessment : Yes Supportive Family: Yes Interval History Identifying Information SANCHEZ CARTER is a 76-year-old M who currently lives in [place], and was admitted on 01/24/22 16:16 on a 201 voluntary commitment for depression. The patient was admitted medically for hyponatremia on 01/23/22 and was transferred upon medical clearance. Chief Complaint "I feel really really anxious". Review of Systems Sleep Information Total Hours of Sleep: 7 Sleep Comments: Awoke to use bathroom and received nasal saline spray for congestion and Vistaril for anxiety Meal Information Percent Meal Consumed - Breakfast: 100 Percent Meal Consumed - Lunch: 0 Percent Meal Consumed - Dinner: 75 Nutrition Comment: Pt not feeling well Subjective Subjective Patient was seen & assessed and interval progress reviewed with treatment team nursing and social work. Continues to have depression and feels a lot of anxiety today. Notes this feels like total "helplessness". Wonders about adding a medication for anxiety. Had nausea this morning, was seen by hospitalist providers. Continues to feel depressed. Wants to try to attend some groups but has been struggling with this due to somatic symptoms. Physical Exam Psychiatric Orientation: alert and oriented x 3 Apperance: appropriately dressed and appropriately groomed Eye Contact: + poor eye contact Motor Behavior: no abnormal motor movements Speech: normal rate/rhythm/volume of speech Affect: + depressed affect Mood: + depressed mood Thought Process: goal directed thought process Thought Content: reality based without delusions Suicidal Thoughts: denies suicidal plan and denies suicidal intent; + reports suicidal thoughts Homicidal Thoughts: denies homicidal thoughts Hallucinations: no auditory hallucinations and no visual hallucinations Cognition: attention grossly intact and language grossly intact Estimated Intelligence: consistent with education level Insight: + limited insight Judgement: + limited judgement Vital Signs (Past 24 Hours) Last Vital Signs Temp 36.7 C 01/27/22 06:56 Pulse 61 01/27/22 06:56 Resp 18 01/27/22 06:56 BP 146/75 H 01/27/22 06:56 Results & Data ([facility]) Laboratory Results Laboratory Results - last 24 hr 01/27/22 01/27/22 01/27/22 07:12 07:12 15:42 Sodium 125 L 125 L Potassium 4.0 4.1 Chloride 95 L 94 L Carbon Dioxide 23 25 Anion Gap 7 6 BUN 16 17 Creatinine 1.02 1.08 Est Cr Clr Drug Dosing 72.0 68.0 Est GFR ( Amer) 81.8 76.3 Est GFR (Non-Af Amer) 70.6 65.9 BUN/Creatinine Ratio 15.7 15.7 Glucose 115 H 111 H Calcium 9.1 9.2 Cortisol AM Sample 24.60 H Current Inpatient Medications Current Inpatient Medications: Current Inpatient Medications Al Hydrox/Mg Hydrox/Simethicone (Aluminum/Magnesium Susp 30 Ml Udc) 30 ml PO Q4H PRN PRN Reason: GI Upset Stop: 02/23/22 17:27 Last Admin: 01/25/22 01:15 Dose: 30 ml Apixaban (Apixaban 5 Mg Tablet) 5 mg PO BID [facility] Stop: 02/23/22 20:59 Last Admin: 01/27/22 08:50 Dose: 5 mg Buspirone HCl (Buspirone 5 Mg Tab) 5 mg PO PC MANJIT Stop: 02/26/22 13:59 Last Admin: 01/27/22 15:12 Dose: 5 mg Clopidogrel Bisulfate (Clopidogrel Bisulfate 75 Mg Tab) 75 mg PO QAM MANJIT Stop: 02/24/22 08:59 Last Admin: 01/27/22 08:50 Dose: 75 mg Dronedarone (Dronedarone Hcl 400 Mg Tab) 400 mg PO BID MANJIT Stop: 02/23/22 20:59 Last Admin: 01/27/22 08:51 Dose: 400 mg Enalapril Maleate (Enalapril Maleate 10 Mg Tab) 20 mg PO BID MANJIT Stop: 02/23/22 20:59 Last Admin: 01/27/22 08:51 Dose: 20 mg Fish Oil ([place]-3 (Purified Fish Oil) 1 Gm Cap) 1 gm PO QAM MANJIT Stop: 02/24/22 08:59 Last Admin: 01/27/22 08:52 Dose: 1 gm Hydroxyzine HCl (Hydroxyzine Hcl 25 Mg Tab) 50 mg PO HSZ PRN PRN Reason: Insomnia Stop: 02/23/22 17:45 Last Admin: 01/25/22 01:11 Dose: 50 mg Hydroxyzine HCl (Hydroxyzine Hcl 25 Mg Tab) 25 mg PO Q4H PRN PRN Reason: Anxiety Stop: 02/23/22 17:45 Last Admin: 01/27/22 04:40 Dose: 25 mg Latanoprost (Latanoprost 0.005% Op Soln 2.5 Ml Btl) 1 drops OP PM MANJIT Stop: 02/23/22 20:59 Last Admin: 01/26/22 20:37 Dose: 1 drops Magnesium Hydroxide (Magnesium Hydroxide Susp 30 Ml Udc) 30 ml PO DAILY PRN PRN Reason: Constipation Stop: 02/23/22 17:27 Melatonin (Melatonin 3 Mg Tab) 3 mg PO HS MANJIT Stop: 02/23/22 21:59 Last Admin: 01/26/22 20:38 Dose: 3 mg Metoprolol Succinate (Metoprolol Succ 25mg Ext Rel Tab) 25 mg PO PM MANJIT Stop: 02/23/22 20:59 Last Admin: 01/26/22 20:37 Dose: 25 mg Montelukast Sodium (Montelukast Sodium 10 Mg Tablet) 10 mg PO QAM MANJIT Stop: 02/24/22 08:59 Last Admin: 01/27/22 08:52 Dose: 10 mg Multivitamins/Minerals (Cerovite Adv Formula Tab) 1 tab PO BID MANJIT Stop: 02/23/22 20:59 Last Admin: 01/27/22 08:52 Dose: 1 tab Pantoprazole Sodium (Pantoprazole 40 Mg Tab) 40 mg PO HS MANJIT Stop: 02/23/22 21:59 Last Admin: 01/26/22 20:38 Dose: 40 mg Pentoxifylline (Pentoxifylline 400mg Ext Rel Tab) 400 mg PO BID MANJIT Stop: 02/23/22 20:59 Last Admin: 01/27/22 08:52 Dose: 400 mg Rosuvastatin Calcium (Rosuvastatin Calcium 10 Mg Tab) 10 mg PO HS MANJIT Stop: 02/23/22 21:59 Last Admin: 01/26/22 20:39 Dose: 10 mg Sertraline HCl (Sertraline Hcl 50 Mg Tablet) 50 mg PO QAM MANJIT Stop: 02/24/22 08:59 Last Admin: 01/27/22 08:52 Dose: 50 mg Sodium Chloride (Sodium Chloride 0.65% Na Soln 45 Ml ([place])) 1 - 2 sprays NA PRN PRN PRN Reason: Nasal Dryness/Congestion Stop: 02/23/22 17:27 Last Admin: 01/27/22 04:39 Dose: 2 sprays Sodium Chloride (Sodium Chloride 1 Gm Tablet) 3 gm PO TID MANJIT Stop: 02/26/22 13:59 Last Admin: 01/27/22 13:13 Dose: 3 gm Tamsulosin HCl (Tamsulosin Hcl 0.4 Mg Cap) 0.4 mg PO HS MANJIT Stop: 02/23/22 21:59 Last Admin: 01/26/22 20:39 Dose: 0.4 mg Mental Health & Subst Abuse Tx Psychiatrist Name of Psychiatrist: Clarence Bailey Psychiatrist's Date of Appointment with Psychiatrist: 02/08/22 Time of Appointment with Psychiatrist: 10:15am Psychiatric Appointment Comment: [address] [place] [address] Therapist Name of Therapist: [employer] Therapist's Therapy Appointment Comment: [address], [address], [place] [address] Post Discharge Appointments Primary Care Physician Name Of Family Doctor: [facility] (Seeing Dr. Robles) Primary Care Date of Appointment with PCP: 02/05/22 Time of Appointment with PCP: 12:45 PM Provider Appointment Comment: [address], [place] [address]
[2022-01-27] MEDS ORDERED: ONDANSETRON 4 MG OD TAB PO PRN (18:11)
[2022-01-27] MEDS: FAMOTIDINE 20 MG TAB PO SCH (19:27)
[2022-01-27] MEDS: METOPROLOL SUCC 25MG EXT REL TAB PO SCH (21:20)
[2022-01-27] MEDS: LATANOPROST 0.005% OP SOLN 2.5 ML BTL OP SCH (21:21)
[2022-01-27] MEDS: TAMSULOSIN HCL 0.4 MG CAP PO SCH (21:23)
[2022-01-27] MEDS: ROSUVASTATIN CALCIUM 10 MG TAB PO SCH (21:23)
[2022-01-27] MEDS: MELATONIN 3 MG TAB PO SCH (21:24)
[2022-01-27] MEDS: PANTOprazole 40 MG TAB PO SCH (21:24)
--- NOTE | 2022-01-28 08:23 | Hospitalist Progress Note ---
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 Initially admitted to medical service due to hyponatremia and subsequently cleared. Reconsulted due to worsening sodium level. 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 At this point his hyponatremia seems to be largely asymptomatic, so don't believe there is a role for hypertonic saline Of note, patient takes sertraline for his depression, which can precipitate/worsen SIADH -- it may be that his SIADH is present despite this medication but it may be worthwhile to consider alternative treatment if sodium continues to worsen or he becomes symptomatic - For now would continue on sertraline if working well for his psych symptoms and see if fluid restriction improves sodium levels - Na= 125 today Recommend limiting fluid intake at this time and liberal salting of food Continue oral salt tabs 3g TID and continue to trend sodium Major Depressive Episode Patient with history of depression, reporting self tapering of sertraline approximately 3 to 4 months ago Care per Psychiatry team As above, sertraline may contribute to SIADH/low sodium but for now would not necessarily make changes to meds unless appropriate in the setting of his psychiatric care Narcolepsy - History noted in setting of ongoing MDE. - Continue modafanil AFib - currently rate and rhythm controlled - continue Eliquis, metoprolol, dronedarone AAION - History noted. Legally blind secondary to this. - Continue statin, Plavix HTN - continue enalapril (per formulary), metoprolol Plan Code: FULL Diet: Regular, fluid restriction DVT PPX: On Eliquis (2) Narcolepsy: (3) Afib: (4) AAION (arteritic anterior ischemic optic neuropathy), both eyes: (5) Severe obstructive sleep apnea: (6) HTN (hypertension): Admission and Anticipated Discharge Date Admission Date: January 24, 2022 Supervising Physician Co-Signing Physician Notes Attending attestation Pt seen and examined in concert with Dr. Oneil. In agreement with the documented findings as noted in the resident documentation with any exceptions or additions as noted here. Significant improvement in energy and mood today. Tolerating sodium supplementation well. Resolution of interval GI complaints. VS, previous imaging, labs and notes reviewed. On examination, S1/S2 nl RRR no MCG. CTAB. Abd NT/ND BS+ve. CNII-XII grossly intact excepting optic examination which is chronically diminished. Hyponatremia, SIADH component - no sign of adrenal insufficiency, thyroid abnormality. Symptoms chronic and sertraline not, so likely not causative in entirety, though may exacerbate. Continue sodium tab supplementation, check BMP daily. Fluid restriction to 1500mL Nausea/vomiting - resolved. H2 therapy, ondansetron PRN Else see resident documentation as noted. 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 Was initially admitted to medicine service due to hyponatremia, found to have urine osmolality of 408 and urine sodium on 102; consistent with SIADH. Was treated with IV fluids due to hypovolemia with concern for hypovolemic hyponatremia and diet improved; sodium went from 129 to 134. Sodium recheck yesterday and found to be 126. Feeling significantly better this morning. Nausea improved, good appetite. States his mood is a lot better. Review of Systems Constitutional: no fever, no chills and no sweats Ear, Nose, Mouth, Throat: no dizziness, no nasal congestion, no nasal disc harge and no post nasal drip Respiratory: + cough (mild, nonproductive); no chest congestion Cardiovascular: no chest pain, no palpitations and no edema Gastrointestinal: no abdominal pain, no nausea and no vomiting Genitourinary: no dysuria, no difficulty urinating or no urinary incontinence Neurologic: no tingling, no numbness, no dizziness and no confusion Physical Exam Physical Exam: Constitutional: well-appearing, no acute distress HEENT: NCAT, no conjunctival injection CV: regular rhythm, no murmur appreciated, extremities well-perfused, no LE edema Resp: CTABL, no wheezes/rales/rhonchi appreciated, no increased work of breathing GI: soft, nondistended, nontender, BS normoactive MSK: no gross deformities appreciated Skin: warm, dry, no rash appreciated Neuro: alert, oriented, no focal neurologic deficit appreciated Results & Data Results & Data ([facility]) Vital Signs (Past 12 Hours) Vital Signs Temp Pulse Pulse Resp BP BP 01/28/22 06:42 71 135/88 01/28/22 06:41 36.9 C 60 16 136/74 01/27/22 21:33 62 159/78 H 01/27/22 21:33 36.6 C
[2022-01-28] MEDS: APIXABAN 5 MG TABLET PO SCH ×2 (09:09→20:43)
[2022-01-28] MEDS: busPIRone 5 MG TAB PO SCH ×3 (09:10→17:45)
[2022-01-28] MEDS: CLOPIDOGREL BISULFATE 75 MG TAB PO SCH (09:10)
[2022-01-28] MEDS: ENALAPRIL MALEATE 10 MG TAB PO SCH ×2 (09:10→20:44)
[2022-01-28] MEDS: DRONEDARONE HCL 400 MG TAB PO SCH ×2 (09:10→20:49)
[2022-01-28] MEDS: OMEGA-3 (PURIFIED FISH OIL) 1 GM CAP PO SCH (09:11)
[2022-01-28] MEDS: CEROVITE ADV FORMULA TAB PO SCH ×2 (09:11→20:45)
[2022-01-28] MEDS: SERTRALINE HCL 50 MG TABLET PO SCH (09:11)
[2022-01-28] MEDS: FAMOTIDINE 20 MG TAB PO SCH (09:11)
[2022-01-28] MEDS: SODIUM CHLORIDE 1 GM TABLET PO SCH ×3 (09:11→20:46)
[2022-01-28] MEDS: MONTELUKAST SODIUM 10 MG TABLET PO SCH (09:11)
[2022-01-28] MEDS: PENTOXIFYLLINE 400MG EXT REL TAB PO SCH ×2 (09:11→20:43)
[2022-01-28 09:27] LABS: BUN Creatinine Ratio 16.2 (10-20); Calcium 9.2 mg/dl (8.5-10.1); Creatinine Clr Calc Pharmacy 66.2 ml/min; Est GFR (African American) 73.8 ml/min; Est GFR (Non-African American) 63.7 ml/min; Potassium 4.1 mmol/L (3.5-5.1)
--- NOTE | 2022-01-28 11:19 | Psychiatric Progress Note ---
Date of Service January 28, 2022 Impression / Recommendations Impression 76 yo male with multiple vegetative symptoms of anxiety, recent worsening of anxiety presented to ED after experiencing SI during a panic attack and was admitted medically for hyponatremia then cleared. Diagnostically consistent with major depressive disorder with anxious distress as well as panic attacks. The patient is deemed unstable and requires psychiatric hospitalization for diagnostic clarification, safety and stabilization, medication management and development of further coping skills. MNPR due to age with high community prevalence of COVID-19 infection, legally blind 01/28/22: Mood and physical symptoms improving today. Tolerating fluid restrictions and salt tabs started by hospitalist team. Reviewed BMP, Na+ 126 today. Tolerating buspar initiation well and feels this is helping. If sleep and nausea becoming problematic again would consider mirtazapine addition especially as this tends to be less severe than other SSRIs in contributing to SIADH. 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: (2) Panic attacks: (3) Hyponatremia: (4) Excessive daytime sleepiness: Plan 01/28/22: Continue with current medications and tx plan. BMP tomorrow. Appreciate hospitalist team input, recommendations and assistance. Needs family meeting. 01/27/22: Start buspar 5mg TID for anxiety. Continue with fluid restriction (goal <1500ml per day), salt tabs/zofran/pepcid added by hospitalist service 01/26/22: Appreciate hospitalist involvement and recommendations regarding hyponatremia. Continue with sertraline 50mg qd. Fluid restriction. 01/25/22: Recheck Na+ tomorrow. Continue sertraline 50mg qd. 01/24/22: The patient was admitted to the [facility] ([facility] mental health unit) on q15 min checks (behavioral with suicide precautions) for safety. The patient will participate in group, recreational, and milieu therapies and will be offered additional individual and family sessions as clinically appropriate. Risks/benefits/alternatives reviewed re: current medications, patient will establish baseline on unit and have repeat sodium in 2-3 days if remains on SSRI, otherwise weekly. Patient has had some benefit from Buspar, would be preferrable over benzo Xanax given age/fall risk. Patient did not receive CPAP on the floor and had no issues overnight/did not require O2 so will be prn on return home. He is no longer on modafanil for excessive daytime sleepiness/hx of narcolepsy but not clear if stopped on own 2 months or as directed. Suicide Risk Level Suicide Risk Level: Moderate (q15 min suicide checks) (depression with SI prior to admission but mood improving, anxiety lessening, denies SI today and feels safe in the hospital, agrees to let nursing know if SI worsens, changes or he feels unable to remain safe without additional support) Risk Factors Assessment Male: Yes : Yes Do You Have Access To A Gun?: Yes (multiple) Health Problems: Yes Mental Health Diagnoses: Yes Previous Attempt: No Previous Psychiatric Hospitalization: No Protective Factors Assessment : Yes Supportive Family: Yes Interval History Identifying Information SANCHEZ CARTER is a 76-year-old M who currently lives in [place], and was admitted on 01/24/22 16:16 on a 201 voluntary commitment for depression. The patient was admitted medically for hyponatremia on 01/23/22 and was transferred upon medical clearance. Chief Complaint "The darkness and morose feeling is gone today". Review of Systems Sleep Information Total Hours of Sleep: 5.75 Sleep Comments: Meal Information Percent Meal Consumed - Breakfast: 100 Percent Meal Consumed - Lunch: 0 Percent Meal Consumed - Dinner: 90 Nutrition Comment: Subjective Subjective Patient was seen & assessed and interval progress reviewed with treatment team nursing and social work. He feels his depression is improving today and physically he feels much better which he attributes to starting the salt tabs. Continues to have some anxiety with panic but this is lessening. No side effects to the buspar and finds this helpful. No new side effects to sertraline and no GI symptoms today. Remains on fluid restrictions which he is managing well. Physical Exam Psychiatric Orientation: alert and oriented x 3 Apperance: appropriately dressed and appropriately groomed Eye Contact: + poor eye contact Motor Behavior: no abnormal motor movements Speech: normal rate/rhythm/volume of speech Affect: + anxious affect Mood: + anxious mood Thought Process: goal directed thought process Thought Content: reality based without delusions Suicidal Thoughts: denies suicidal thoughts, denies suicidal plan and denies suicidal intent Homicidal Thoughts: denies homicidal thoughts Hallucinations: no auditory hallucinations and no visual hallucinations Cognition: attention grossly intact and language grossly intact Estimated Intelligence: consistent with education level Insight: + fair insight Judgement: + fair judgement Vital Signs (Past 24 Hours) Last Vital Signs Temp 36.9 C 01/28/22 06:41 Pulse 71 01/28/22 06:42 Resp 16 01/28/22 06:41 BP 135/88 01/28/22 06:42 Results & Data ([facility]) Laboratory Results Laboratory Results - last 24 hr 01/27/22 01/28/22 15:42 08:54 Sodium 125 L 126 L Potassium 4.1 4.1 Chloride 94 L 96 L Carbon Dioxide 25 25 Anion Gap 6 5 BUN 17 18 Creatinine 1.08 1.11 Est Cr Clr Drug Dosing 68.0 66.2 Est GFR ( Amer) 76.3 73.8 Est GFR (Non-Af Amer) 65.9 63.7 BUN/Creatinine Ratio 15.7 16.2 Glucose 111 H 118 H Calcium 9.2 9.2 Current Inpatient Medications Current Inpatient Medications: Current Inpatient Medications Al Hydrox/Mg Hydrox/Simethicone (Aluminum/Magnesium Susp 30 Ml Udc) 30 ml PO Q4H PRN PRN Reason: GI Upset Stop: 02/23/22 17:27 Last Admin: 01/25/22 01:15 Dose: 30 ml Apixaban (Apixaban 5 Mg Tablet) 5 mg PO BID MANJIT Stop: 02/23/22 20:59 Last Admin: 01/28/22 09:09 Dose: 5 mg Buspirone HCl (Buspirone 5 Mg Tab) 5 mg PO PC MANJIT Stop: 02/26/22 13:59 Last Admin: 01/28/22 09:10 Dose: 5 mg Clopidogrel Bisulfate (Clopidogrel Bisulfate 75 Mg Tab) 75 mg PO QAM MANJIT Stop: 02/24/22 08:59 Last Admin: 01/28/22 09:10 Dose: 75 mg Dronedarone (Dronedarone Hcl 400 Mg Tab) 400 mg PO BID MANJIT Stop: 02/23/22 20:59 Last Admin: 01/28/22 09:10 Dose: 400 mg Enalapril Maleate (Enalapril Maleate 10 Mg Tab) 20 mg PO BID MANJIT Stop: 02/23/22 20:59 Last Admin: 01/28/22 09:10 Dose: 20 mg Famotidine (Famotidine 20 Mg Tab) 20 mg PO DAILY MANJIT Stop: 02/26/22 18:14 Last Admin: 01/28/22 09:11 Dose: 20 mg Fish Oil (Voss-3 (Purified Fish Oil) 1 Gm Cap) 1 gm PO QAM MANJIT Stop: 02/24/22 08:59 Last Admin: 01/28/22 09:11 Dose: 1 gm Hydroxyzine HCl (Hydroxyzine Hcl 25 Mg Tab) 50 mg PO HSZ PRN PRN Reason: Insomnia Stop: 02/23/22 17:45 Last Admin: 01/25/22 01:11 Dose: 50 mg Hydroxyzine HCl (Hydroxyzine Hcl 25 Mg Tab) 25 mg PO Q4H PRN PRN Reason: Anxiety Stop: 02/23/22 17:45 Last Admin: 01/27/22 04:40 Dose: 25 mg Latanoprost (Latanoprost 0.005% Op Soln 2.5 Ml Btl) 1 drops OP PM MANJIT Stop: 02/23/22 20:59 Last Admin: 01/27/22 21:21 Dose: 1 drops Magnesium Hydroxide (Magnesium Hydroxide Susp 30 Ml Udc) 30 ml PO DAILY PRN PRN Reason: Constipation Stop: 02/23/22 17:27 Melatonin (Melatonin 3 Mg Tab) 3 mg PO HS MANJIT Stop: 02/23/22 21:59 Last Admin: 01/27/22 21:24 Dose: 3 mg Metoprolol Succinate (Metoprolol Succ 25mg Ext Rel Tab) 25 mg PO PM MANJIT Stop: 02/23/22 20:59 Last Admin: 01/27/22 21:20 Dose: 25 mg Montelukast Sodium (Montelukast Sodium 10 Mg Tablet) 10 mg PO QAM MANJIT Stop: 02/24/22 08:59 Last Admin: 01/28/22 09:11 Dose: 10 mg Multivitamins/Minerals (Cerovite Adv Formula Tab) 1 tab PO BID MANJIT Stop: 02/23/22 20:59 Last Admin: 01/28/22 09:11 Dose: 1 tab Ondansetron HCl (Ondansetron 4 Mg Od Tab) 4 mg PO Q4H PRN PRN Reason: Nausea And Vomiting Stop: 02/26/22 18:10 Pantoprazole Sodium (Pantoprazole 40 Mg Tab) 40 mg PO HS MANJIT Stop: 02/23/22 21:59 Last Admin: 01/27/22 21:24 Dose: 40 mg Pentoxifylline (Pentoxifylline 400mg Ext Rel Tab) 400 mg PO BID MANJIT Stop: 02/23/22 20:59 Last Admin: 01/28/22 09:11 Dose: 400 mg Rosuvastatin Calcium (Rosuvastatin Calcium 10 Mg Tab) 10 mg PO HS MANJIT Stop: 02/23/22 21:59 Last Admin: 01/27/22 21:23 Dose: 10 mg Sertraline HCl (Sertraline Hcl 50 Mg Tablet) 50 mg PO QAM MANJIT Stop: 02/24/22 08:59 Last Admin: 01/28/22 09:11 Dose: 50 mg Sodium Chloride (Sodium Chloride 0.65% Na Soln 45 Ml ([place])) 1 - 2 sprays NA PRN PRN PRN Reason: Nasal Dryness/Congestion Stop: 02/23/22 17:27 Last Admin: 01/27/22 21:26 Dose: 2 sprays Sodium Chloride (Sodium Chloride 1 Gm Tablet) 3 gm PO TID MANJIT Stop: 02/26/22 13:59 Last Admin: 01/28/22 09:11 Dose: 3 gm Tamsulosin HCl (Tamsulosin Hcl 0.4 Mg Cap) 0.4 mg PO HS MANJIT Stop: 02/23/22 21:59 Last Admin: 01/27/22 21:23 Dose: 0.4 mg Mental Health & Subst Abuse Tx Psychiatrist Name of Psychiatrist: Clarence Bailey Psychiatrist's Date of Appointment with Psychiatrist: 02/08/22 Time of Appointment with Psychiatrist: 10:15am Psychiatric Appointment Comment: [address] [place] [address] [facility] Appointment Comment: [address], [address], [place] [address] Post Discharge Appointments Primary Care Physician Name Of Family Doctor: [facility] (Seeing Dr. Robles) Primary Care Date of Appointment with PCP: 02/05/22 Time of Appointment with PCP: 12:45 PM Provider Appointment Comment: [address], [place] [address]
[2022-01-28] MEDS: LATANOPROST 0.005% OP SOLN 2.5 ML BTL OP SCH (20:42)
[2022-01-28] MEDS: TAMSULOSIN HCL 0.4 MG CAP PO SCH (20:45)
[2022-01-28] MEDS: PANTOprazole 40 MG TAB PO SCH (20:45)
[2022-01-28] MEDS: MELATONIN 3 MG TAB PO SCH (20:45)
[2022-01-28] MEDS: ROSUVASTATIN CALCIUM 10 MG TAB PO SCH (20:45)
[2022-01-28] MEDS: METOPROLOL SUCC 25MG EXT REL TAB PO SCH (20:49)
[2022-01-29] MEDS: MAGNESIUM HYDROXIDE SUSP 30 ML UDC PO PRN ×2 (04:28→21:02)
--- NOTE | 2022-01-29 07:26 | Hospitalist Progress Note ---
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 Initially admitted to medical service due to hyponatremia and subsequently cleared. Reconsulted due to worsening sodium level. 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 Symptomatically improving Recommend limiting fluid intake at this time and liberal salting of food Continue oral salt tabs 3g TID and continue to trend sodium; will repeat BMP tomorrow. If continues to improve would consider going to BID. Will need f/u BMP about a week after d/c Major Depressive Episode Patient with history of depression, reporting self tapering of sertraline approximately 3 to 4 months ago Care per Psychiatry team As above, sertraline may contribute to SIADH/low sodium but for now would not necessarily make changes to meds unless appropriate in the setting of his psychiatric care Narcolepsy - History noted in setting of ongoing MDE. - Continue modafanil AFib - currently rate and rhythm controlled - continue Eliquis, metoprolol, dronedarone AAION - History noted. Legally blind secondary to this. - Continue statin, Plavix HTN - continue enalapril (per formulary), metoprolol Plan Code: FULL Diet: Regular, fluid restriction DVT PPX: On Eliquis (2) Narcolepsy: (3) Afib: (4) AAION (arteritic anterior ischemic optic neuropathy), both eyes: (5) Severe obstructive sleep apnea: (6) HTN (hypertension): Admission and Anticipated Discharge Date Admission Date: January 24, 2022 Supervising Physician Co-Signing Physician Notes Attending Attestation Pt seen and examined in concert with Dr. Oneil. I agree with the impression and plan as noted in the resident documentation. Upon our afternoon exam, the patient is in group therapy. He returns to his room for exam/discussion. He reports feeling better overall. A discussion with the psychiatry team, overall plan seems to be for discharge tomorrow given his overall improvement. Exam 124/73, 58, 16, 36.6, 97% on room air He is pleasant. Thoughts are organized, speech non-pressured Data Serum sodium is 133, up from 126 yesterday. Remainder of electrolytes unremarkable except for mildly elevated glucose 115. Impression and plan Hyponatremia, SIADH component Improving Continue supplementation We will recheck BMP in a.m. 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 Was initially admitted to medicine service due to hyponatremia, found to have urine osmolality of 408 and urine sodium on 102; consistent with SIADH. Was treated with IV fluids due to hypovolemia with concern for hypovolemic hyponatremia and diet improved; sodium went from 129 to 134. Sodium recheck and found to be low again. Pt states he is doing well this morning. Denies any GI complaints. Very happy with the salt tabs, states he has felt significantly better since starting the salt tabs. Review of Systems Constitutional: no fever, no chills and no sweats Ear, Nose, Mouth, Throat: no dizziness, no nasal congestion, no nasal discharge and no post nasal drip Cardiovascular: no chest pain, no palpitations and no edema Gastrointestinal: no abdominal pain, no nausea and no vomiting Neurologic: no tingling, no numbness, no dizziness and no confusion Physical Exam Physical Exam: Constitutional: well-appearing, no acute distress HEENT: NCAT, no conjunctival injection CV: regular rhythm, no murmur appreciated, extremities well-perfused, no LE edema Resp: CTABL, no wheezes/rales/rhonchi appreciated, no increased work of breathing GI: soft, nondistended, nontender, BS normoactive MSK: no gross deformities appreciated Skin: warm, dry, no rash appreciated Neuro: alert, oriented, no focal neurologic deficit appreciated Results & Data Results & Data ([facility]) Vital Signs (Past 12 Hours) Vital Signs Temp Pulse Resp BP Pulse Ox O2 Del Method 01/29/22 06:49 58 L 124/73 01/29/22 06:00 36.6 C 56 L 16 126/75 97 Room Air 01/28/22 20:52 62 16 154/77 H 95 Room Air 01/28/22 20:00 36.4 C L Resident Activity Tracking Resident Involvement: Resident Care Provided Care Provided: Adult Hospital Medicine
[2022-01-29] MEDS: CLOPIDOGREL BISULFATE 75 MG TAB PO SCH (08:53)
[2022-01-29] MEDS: busPIRone 5 MG TAB PO SCH ×3 (08:53→17:30)
[2022-01-29] MEDS: DRONEDARONE HCL 400 MG TAB PO SCH ×2 (08:53→21:00)
[2022-01-29] MEDS: SERTRALINE HCL 50 MG TABLET PO SCH (08:53)
[2022-01-29] MEDS: ENALAPRIL MALEATE 10 MG TAB PO SCH ×2 (08:53→21:00)
[2022-01-29] MEDS: APIXABAN 5 MG TABLET PO SCH ×2 (08:53→20:59)
[2022-01-29] MEDS: OMEGA-3 (PURIFIED FISH OIL) 1 GM CAP PO SCH (08:53)
[2022-01-29] MEDS: FAMOTIDINE 20 MG TAB PO SCH (08:54)
[2022-01-29] MEDS: PENTOXIFYLLINE 400MG EXT REL TAB PO SCH ×2 (08:55→21:00)
[2022-01-29] MEDS: CEROVITE ADV FORMULA TAB PO SCH ×2 (08:55→21:00)
[2022-01-29] MEDS: SODIUM CHLORIDE 1 GM TABLET PO SCH ×3 (08:55→21:01)
[2022-01-29] MEDS: MONTELUKAST SODIUM 10 MG TABLET PO SCH (08:55)
[2022-01-29 11:13] LABS: BUN Creatinine Ratio 15.4 (10-20); Calcium 9.9 mg/dl (8.5-10.1); Creatinine Clr Calc Pharmacy 59.7 ml/min; Est GFR (African American) 65.2 ml/min; Est GFR (Non-African American) 56.3 ml/min; Potassium 4.3 mmol/L (3.5-5.1)
--- NOTE | 2022-01-29 16:30 | Psychiatric Progress Note ---
Date of Service January 29, 2022 Impression / Recommendations Impression 76 yo male with multiple vegetative symptoms of anxiety, recent worsening of anxiety presented to ED after experiencing SI during a panic attack and was admitted medically for hyponatremia then cleared. Diagnostically consistent with major depressive disorder with anxious distress as well as panic attacks. The patient is deemed unstable and requires psychiatric hospitalization for diagnostic clarification, safety and stabilization, medication management and development of further coping skills. MNPR due to age with high community prevalence of COVID-19 infection, legally blind 01/29/22: Mood continuing to improve. Reviewed Na+ 133 today and discussed with hospitalists who will trend BMP again tomorrow and adjust salt tabs as needed depending on progress/trend. He will then need a follow-up BMP in about 1.5 weeks after discharge to re-assess Na+ trend. Tolerating sertraline and buspar without side effects. 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 01/28/22: Continue with current medications and tx plan. BMP tomorrow. Appreciate hospitalist team input, recommendations and assistance. Needs family meeting. 01/27/22: Start buspar 5mg TID for anxiety. Continue with fluid restriction (goal <1500ml per day), salt tabs/zofran/pepcid added by hospitalist service 01/26/22: Appreciate hospitalist involvement and recommendations regarding hyponatremia. Continue with sertraline 50mg qd. Fluid restriction. 01/25/22: Recheck Na+ tomorrow. Continue sertraline 50mg qd. 01/24/22: The patient was admitted to the [facility] ([facility] inpatient mental health unit) on q15 min checks (behavioral with suicide precautions) for safety. The patient will participate in group, recreational, and milieu therapies and will be offered additional individual and family sessions as clinically appropriate. Risks/benefits/alternatives reviewed re: current medications, patient will establish baseline on unit and have repeat sodium in 2-3 days if remains on SSRI, otherwise weekly. Patient has had some benefit from Buspar, would be pref errable over benzo Xanax given age/fall risk. Patient did not receive CPAP on the floor and had no issues overnight/did not require O2 so will be prn on return home. He is no longer on modafanil for excessive daytime sleepiness/hx of narcolepsy but not clear if stopped on own 2 months or as directed. Suicide Risk Level Suicide Risk Level: Moderate (q15 min suicide checks) (depression with SI prior to admission but mood improving, anxiety lessening, denies SI now and feels safe in the hospital, agrees to let nursing know if SI worsens, changes or he feels unable to remain safe without additional support) Risk Factors Assessment Male: Yes : Yes Do You Have Access To A Gun?: Yes (multiple) Health Problems: Yes Mental Health Diagnoses: Yes Previous Attempt: No Previous Psychiatric Hospitalization: No Protective Factors Assessment : Yes Supportive Family: Yes Interval History Identifying Information SANCHEZ CARTER is a 76-year-old M who currently lives in [place], and was admitted on 01/24/22 16:16 on a 201 voluntary commitment for depression. The patient was admitted medically for hyponatremia on 01/23/22 and was transferred upon medical clearance. Chief Complaint "I'm really doing quite well". Review of Systems Sleep Information Total Hours of Sleep: 5.75 Meal Information Percent Meal Consumed - Breakfast: 100 Percent Meal Consumed - Lunch: 100 Percent Meal Consumed - Dinner: 100 Subjective Subjective Patient was seen & assessed and interval progress reviewed with treatment team nursing and social work. Mason feels his mood and anxiety have continued to improve. He denies any side effects from the sertraline nor the buspar. Pleased his sodium is improving. Finding the groups helpful. Grateful that his mood is improving. Feeling more confident about his ability to function outside of the hospital. Physical Exam Psychiatric Orientation: alert and oriented x 3 Apperance: appropriately dressed and appropriately groomed Eye Contact: + poor eye contact Motor Behavior: no abnormal motor movements Speech: normal rate/rhythm/volume of speech Thought Process: goal directed thought process Thought Content: reality based without delusions Suicidal Thoughts: denies suicidal thoughts Homicidal Thoughts: denies homicidal thoughts Hallucinations: no auditory hallucinations and no visual hallucinations Cognition: attention grossly intact and language grossly intact Estimated Intelligence: consistent with education level Insight: + fair insight Judgement: + fair judgement Vital Signs (Past 24 Hours) Last Vital Signs Temp 36.6 C 01/29/22 06:00 Pulse 58 L 01/29/22 06:49 Resp 16 01/29/22 06:00 BP 124/73 01/29/22 06:49 Pulse Ox 97 01/29/22 06:00 O2 Del Method 01/29/22 06:00 Results & Data ([facility]) Laboratory Results Laboratory Results - last 24 hr 01/29/22 10:28 Sodium 133 L Potassium 4.3 Chloride 99 Carbon Dioxide 27 Anion Gap 7 BUN 19 Creatinine 1.23 Est Cr Clr Drug Dosing 59.7 Est GFR ( Amer) 65.2 Est GFR (Non-Af Amer) 56.3 BUN/Creatinine Ratio 15.4 Glucose 115 H Calcium 9.9 Current Inpatient Medications Current Inpatient Medications: Current Inpatient Medications Al Hydrox/Mg Hydrox/Simethicone (Aluminum/Magnesium Susp 30 Ml Udc) 30 ml PO Q4H PRN PRN Reason: GI Upset Stop: 02/23/22 17:27 Last Admin: 01/25/22 01:15 Dose: 30 ml Apixaban (Apixaban 5 Mg Tablet) 5 mg PO BID MANJIT Stop: 02/23/22 20:59 Last Admin: 01/29/22 08:53 Dose: 5 mg Buspirone HCl (Buspirone 5 Mg Tab) 5 mg PO PC [facility] Stop: 02/26/22 13:59 Last Admin: 01/29/22 13:25 Dose: 5 mg Clopidogrel Bisulfate (Clopidogrel Bisulfate 75 Mg Tab) 75 mg PO QAM MANJIT Stop: 02/24/22 08:59 Last Admin: 01/29/22 08:53 Dose: 75 mg Dronedarone (Dronedarone Hcl 400 Mg Tab) 400 mg PO BID MANJIT Stop: 02/23/22 20:59 Last Admin: 01/29/22 08:53 Dose: 400 mg Enalapril Maleate (Enalapril Maleate 10 Mg Tab) 20 mg PO BID MANJIT Stop: 02/23/22 20:59 Last Admin: 01/29/22 08:53 Dose: 20 mg Famotidine (Famotidine 20 Mg Tab) 20 mg PO DAILY MANJIT Stop: 02/26/22 18:14 Last Admin: 01/29/22 08:54 Dose: 20 mg Fish Oil ([place]-3 (Purified Fish Oil) 1 Gm Cap) 1 gm PO QAM MANJIT Stop: 02/24/22 08:59 Last Admin: 01/29/22 08:53 Dose: 1 gm Hydroxyzine HCl (Hydroxyzine Hcl 25 Mg Tab) 50 mg PO HSZ PRN PRN Reason: Insomnia Stop: 02/23/22 17:45 Last Admin: 01/25/22 01:11 Dose: 50 mg Hydroxyzine HCl (Hydroxyzine Hcl 25 Mg Tab) 25 mg PO Q4H PRN PRN Reason: Anxiety Stop: 02/23/22 17:45 Last Admin: 01/27/22 04:40 Dose: 25 mg Latanoprost (Latanoprost 0.005% Op Soln 2.5 Ml Btl) 1 drops OP PM MANJIT Stop: 02/23/22 20:59 Last Admin: 01/28/22 20:42 Dose: 1 drops Magnesium Hydroxide (Magnesium Hydroxide Susp 30 Ml Udc) 30 ml PO DAILY PRN PRN Reason: Constipation Stop: 02/23/22 17:27 Last Admin: 01/29/22 04:28 Dose: 30 ml Melatonin (Melatonin 3 Mg Tab) 3 mg PO HS MANJIT Stop: 02/23/22 21:59 Last Admin: 01/28/22 20:45 Dose: 3 mg Metoprolol Succinate (Metoprolol Succ 25mg Ext Rel Tab) 25 mg PO PM MANJIT Stop: 02/23/22 20:59 Last Admin: 01/28/22 20:49 Dose: 25 mg Montelukast Sodium (Montelukast Sodium 10 Mg Tablet) 10 mg PO QAM MANJIT Stop: 02/24/22 08:59 Last Admin: 01/29/22 08:55 Dose: 10 mg Multivitamins/Minerals (Cerovite Adv Formula Tab) 1 tab PO BID MANJIT Stop: 02/23/22 20:59 Last Admin: 01/29/22 08:55 Dose: 1 tab Ondansetron HCl (Ondansetron 4 Mg Od Tab) 4 mg PO Q4H PRN PRN Reason: Nausea And Vomiting Stop: 02/26/22 18:10 Pantoprazole Sodium (Pantoprazole 40 Mg Tab) 40 mg PO HS MANJIT Stop: 02/23/22 21:59 Last Admin: 01/28/22 20:45 Dose: 40 mg Pentoxifylline (Pentoxifylline 400mg Ext Rel Tab) 400 mg PO BID MANJIT Stop: 02/23/22 20:59 Last Admin: 01/29/22 08:55 Dose: 400 mg Rosuvastatin Calcium (Rosuvastatin Calcium 10 Mg Tab) 10 mg PO HS MANJIT Stop: 02/23/22 21:59 Last Admin: 01/28/22 20:45 Dose: 10 mg Sertraline HCl (Sertraline Hcl 50 Mg Tablet) 50 mg PO QAM MANJIT Stop: 02/24/22 08:59 Last Admin: 01/29/22 08:53 Dose: 50 mg Sodium Chloride (Sodium Chloride 0.65% Na Soln 45 Ml ([place])) 1 - 2 sprays NA PRN PRN PRN Reason: Nasal Dryness/Congestion Stop: 02/23/22 17:27 Last Admin: 01/27/22 21:26 Dose: 2 sprays Sodium Chloride (Sodium Chloride 1 Gm Tablet) 3 gm PO TID MANJIT Stop: 02/26/22 13:59 Last Admin: 01/29/22 13:21 Dose: 3 gm Tamsulosin HCl (Tamsulosin Hcl 0.4 Mg Cap) 0.4 mg PO HS MANJIT Stop: 02/23/22 21:59 Last Admin: 01/28/22 20:45 Dose: 0.4 mg Mental Health & Subst Abuse Tx Psychiatrist Name of Psychiatrist: Clarence Bailey Psychiatrist's Date of Appointment with Psychiatrist: 02/08/22 Time of Appointment with Psychiatrist: 10:15am Psychiatric Appointment Comment: [address] [place] [address] Therapist Name of Therapist: [facility] - Intake Therapist's Date of Therapist Appointment: 02/09/22 Time of Therapist Appointment: 8:40 AM Therapy Appointment Comment: [address], [address], [place] [address] Post Discharge Appointments Primary Care Physician Name Of Family Doctor: [facility] (Seeing Dr. Robles) Primary Care Date of Appointment with PCP: 02/05/22 Time of Appointment with PCP: 12:45 PM Provider Appointment Comment: [address], [place] [address] Contact Information Discharge Discharge Address: [facility] [address], [place] [address]
[2022-01-29] MEDS: PANTOprazole 40 MG TAB PO SCH (20:59)
[2022-01-29] MEDS: TAMSULOSIN HCL 0.4 MG CAP PO SCH (20:59)
[2022-01-29] MEDS: ROSUVASTATIN CALCIUM 10 MG TAB PO SCH (20:59)
[2022-01-29] MEDS: MELATONIN 3 MG TAB PO SCH (21:00)
[2022-01-29] MEDS: METOPROLOL SUCC 25MG EXT REL TAB PO SCH (21:01)
[2022-01-29] MEDS: LATANOPROST 0.005% OP SOLN 2.5 ML BTL OP SCH (21:01)
--- NOTE | 2022-01-30 07:19 | Hospitalist Progress Note ---
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 Initially admitted to medical service due to hyponatremia and subsequently cleared. Reconsulted due to worsening sodium level. 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 Symptomatically improving Recommend limiting fluid intake at this time and liberal salting of food Continue oral salt tabs 3g BID and continue to trend sodium until f/u with PCP and have BMP at that time Major Depressive Episode Patient with history of depression, reporting self tapering of sertraline approximately 3 to 4 months ago Care per Psychiatry team As above, sertraline may contribute to SIADH/low sodium but for now would not necessarily make changes to meds unless appropriate in the setting of his psychiatric care Narcolepsy - History noted in setting of ongoing MDE. - Continue modafanil AFib - currently rate and rhythm controlled - continue Eliquis, metoprolol, dronedarone AAION - History noted. Legally blind secondary to this. - Continue statin, Plavix HTN - continue enalapril (per formulary), metoprolol Plan Code: FULL Diet: Regular, fluid restriction DVT PPX: On Eliquis (2) Narcolepsy: (3) Afib: (4) AAION (arteritic anterior ischemic optic neuropathy), both eyes: (5) Severe obstructive sleep apnea: (6) HTN (hypertension): Admission and Anticipated Discharge Date Admission Date: January 24, 2022 Supervising Physician Co-Signing Physician Notes Attending Attestation I also saw the patient and confirmed salas portions of the history and physical examination. Also discussed the case with Dr. Vo, psychiatry. 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 Was initially admitted to medicine service due to hyponatremia, found to have urine osmolality of 408 and urine sodium on 102; consistent with SIADH. Was treated with IV fluids due to hypovolemia with concern for hypovolemic hyponatremia and diet improved; sodium went from 129 to 134. Sodium recheck and found to be low again. Doing well today without complaint. Eating well. Mood is good. Review of Systems Constitutional: no fever, no chills and no sweats Ear, Nose, Mouth, Throat: no dizziness, no nasal congestion, no nasal discharge and no post nasal drip Respiratory: + cough (mild, nonproductive); no chest congestion Cardiovascular: no chest pain, no palpitations and no edema Gastrointestinal: no abdominal pain, no nausea and no vomiting Genitourinary: no dysuria, no difficulty urinating or no urinary incontinence Neurologic: no tingling, no numbness, no dizziness and no confusion Physical Exam Physical Exam: Constitutional: well-appearing, no acute distress HEENT: NCAT, no conjunctival injection CV: regular rhythm, no murmur appreciated, extremities well-perfused, no LE edema Resp: CTABL, no wheezes/rales/rhonchi appreciated, no increased work of breathing GI: soft, nondistended, nontender, BS normoactive MSK: no gross deformities appreciated Skin: warm, dry, no rash appreciated Neuro: alert, oriented, no focal neurologic deficit appreciated Results & Data Results & Data ([facility]) Vital Signs (Past 12 Hours) Vital Signs Temp Pulse Resp BP Pulse Ox O2 Del Method 01/30/22 06:48 68 109/68 01/30/22 06:00 36.9 C 66 16 130/70 97 Room Air 01/29/22 20:56 64 179/81 H 01/29/22 20:00 36.7 C Resident Activity Tracking Resident Involvement: Resident Care Provided Care Provided: Adult Hospital Medicine
[2022-01-30] MEDS: busPIRone 5 MG TAB PO SCH (08:44)
[2022-01-30] MEDS: APIXABAN 5 MG TABLET PO SCH (08:44)
[2022-01-30] MEDS: MONTELUKAST SODIUM 10 MG TABLET PO SCH (08:44)
[2022-01-30] MEDS: DRONEDARONE HCL 400 MG TAB PO SCH (08:45)
[2022-01-30] MEDS: CLOPIDOGREL BISULFATE 75 MG TAB PO SCH (08:45)
[2022-01-30] MEDS: OMEGA-3 (PURIFIED FISH OIL) 1 GM CAP PO SCH (08:46)
[2022-01-30] MEDS: FAMOTIDINE 20 MG TAB PO SCH (08:46)
[2022-01-30] MEDS: CEROVITE ADV FORMULA TAB PO SCH (08:46)
[2022-01-30] MEDS: ENALAPRIL MALEATE 10 MG TAB PO SCH (08:46)
[2022-01-30] MEDS: SERTRALINE HCL 50 MG TABLET PO SCH (08:46)
[2022-01-30] MEDS: PENTOXIFYLLINE 400MG EXT REL TAB PO SCH (08:47)
[2022-01-30] MEDS: SODIUM CHLORIDE 1 GM TABLET PO SCH (08:47)
--- NOTE | 2022-01-30 10:15 | Discharge Summary ---
Date of Service January 30, 2022 History of Present Illness Mr. Tirado recognizes his decline in past 2 months, ongoing adjustment issues to senior living and relocating from [place] to [place]. He stopped taking his correction medication Zoloft 4-5 months ago. He didn't feel it was necessary any more but admits that over time he became more depressed. More recently he developed increase in frequency of panic attacks for which he takes Xanax sparingly. In the context of low mood and panic he has developed some suicidal thoughts, no plan or intent. He came to the ED for assessment and was admitted medically. He had restarted Zoloft 2-3 days prior to admission. Case was discussed with Dr. Brown who felt possibly SIADH more likely failure to thrive. He also admitted to taking some of his 's Buspar with some benefit. Mr. Tirado scored 23 on the PHQ-9, scoring 3 on all symptoms (including #9 feeling better off ) except 2 (more than have days) on low energy. He did not endorse feeling bad about himself. 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 He reports that many of his symptoms started when he lost his sight as no longer could drive, hike, etc. Physical Exam Psychiatric See admission H&P and DOD assessment. Vital Signs (Past 24 Hours) Last Vital Signs Temp 36.9 C 01/30/22 06:00 Pulse 68 01/30/22 06:48 Resp 16 01/30/22 06:00 BP 109/68 01/30/22 06:48 Pulse Ox 97 01/30/22 06:00 O2 Del Method 01/30/22 06:00 Principal Diagnosis major depressive disorder Psychiatric Data See daily stay summary. In short, safety was maintained and the patient was cooperative with care. 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 He will have repeat labs by PCP shortly (1.5 weeks) and dose salt tabs as directed by hospitalist based on sodium on day of discharge which was stable at 133. A family session was held and safety plan was completed prior to discharge. Day of Discharge Assessment Today the patient voices readiness for discharge. They note improvement in mood and deny thoughts to harm self or others. Thoughts remain organized and they are improved from admission. There is no evidence of psychosis. They agree to take mediations as prescribed and keep follow-up appointments. They are stable for discharge to outpatient level of care. Transition of Care Transition Of Care Record: was reviewed with the patient Advance Directives Advance Directives Information Provided: Yes Advance Directives: No Mental Health Advance Directive: No Advance Directives on File: No Living Will: No Power of Shear Operator Helper: No Advance Directives Reason:: Declines as Mental Health Visit. Suicide Risk Level Suicide Risk Level Comments: Suicide risk at discharge is deemed low as the patient is no longer requiring 24-hr monitoring, has a safety plan, and is free of suicidal ideation at discharge. Risk Factors Assessment Male: Yes : Yes Do You Have Access To A Gun?: No ( confirmed they are secure) Health Problems: Yes Mental Health Diagnoses: Yes Previous Attempt: No Previous Psychiatric Hospitalization: No Protective Factors Assessment : Yes Supportive Family: Yes Tobacco Cessation at Discharge Tobacco Cessation Medication Prescribed at Discharge: Not Applicable/Non-Smoker Total Time Total Time Spent: Greater Than 30 Minutes Total Time Includes: Examination of the patient, Discharge Planning and Medication Reconciliation Discharge Data Consultations 01/26/22 14:57 Consult Hospitalist Routine Lab Results 01/25/22 01/26/22 01/26/22 10:50 08:43 15:59 Sodium 126 L 126 L Potassium 4.5 Chloride 95 L Carbon Dioxide 25 Anion Gap 6 BUN 17 Creatinine 1.13 Est Cr Clr Drug Dosing 65.0 Est GFR ( Amer) 72.3 Est GFR (Non-Af Amer) 62.4 BUN/Creatinine Ratio 15.0 Glucose 102 H Calcium 9.3 Cortisol AM Sample Hepatitis C Ab (EIA) NON-REACTIVE Hep C Ab Signal/Cutoff 0.26 01/27/22 01/27/22 01/27/22 07:12 07:12 15:42 Sodium 125 L 125 L Potassium 4.0 4.1 Chloride 95 L 94 L Carbon Dioxide 23 25 Anion Gap 7 6 BUN 16 17 Creatinine 1.02 1.08 Est Cr Clr Drug Dosing 72.0 68.0 Est GFR ( Amer) 81.8 76.3 Est GFR (Non-Af Amer) 70.6 65.9 BUN/Creatinine Ratio 15.7 15.7 Glucose 115 H 111 H Calcium 9.1 9.2 Cortisol AM Sample 24.60 H Hepatitis C Ab (EIA) Hep C Ab Signal/Cutoff 01/28/22 01/29/22 08:54 10:28 Sodium 126 L 133 L Potassium 4.1 4.3 Chloride 96 L 99 Carbon Dioxide 25 27 Anion Gap 5 7 BUN 18 19 Creatinine 1.11 1.23 Est Cr Clr Drug Dosing 66.2 59.7 Est GFR ( Amer) 73.8 65.2 Est GFR (Non-Af Amer) 63.7 56.3 BUN/Creatinine Ratio 16.2 15.4 Glucose 118 H 115 H Calcium 9.2 9.9 Cortisol AM Sample Hepatitis C Ab (EIA) Hep C Ab Signal/Cutoff Hospital Course 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 01/28/22: Continue with current medications and tx plan. BMP tomorrow. Appreciate hospitalist team input, recommendations and assistance. Needs family meeting. 01/27/22: Start buspar 5mg TID for anxiety. Continue with fluid restriction (goal <1500ml per day), salt tabs/zofran/pepcid added by hospitalist service 01/26/22: Appreciate hospitalist involvement and recommendations regarding hyponatremia. Continue with sertraline 50mg qd. Fluid restriction. 01/25/22: Recheck Na+ tomorrow. Continue sertraline 50mg qd. 01/24/22: The patient was admitted to the [facility] ([facility] mental health unit) on q15 min checks (behavioral with suicide precautions) for safety. The patient will participate in group, recreational, and milieu therapies and will be offered additional individual and family sessions as clinically appropriate. Risks/benefits/alternatives reviewed re: current medications, patient will establish baseline on unit and have repeat sodium in 2-3 days if remains on SSRI, otherwise weekly. Patient has had some benefit from Buspar, would be preferrable over benzo Xanax given age/fall risk. Patient did not receive CPAP on the floor and had no issues overnight/did not require O2 so will be prn on return home. He is no longer on modafanil for excessive daytime sleepiness/hx of narcolepsy but not clear if stopped on own 2 months or as directed. Mental Health & Subst Abuse Tx Psychiatrist Name of Psychiatrist: Clarence Bailey Psychiatrist's Date of Appointment with Psychiatrist: 02/08/22 Time of Appointment with Psychiatrist: 10:15am Psychiatric Appointment Comment: [address] [place] [address] Therapist Name of Therapist: Elizabeth Jhonny - Intake Therapist's Date of Therapist Appointment: 02/09/22 Time of Therapist Appointment: 8:40 AM Therapy Appointment Comment: [address] [facility] [address] [facility], [address], [place] [address] Post Discharge Appointments Primary Care Physician Name Of Family Doctor: [facility] (Seeing Dr. Robles) Primary Care Date of Appointment with PCP: 02/05/22 Time of Appointment with PCP: 12:45 PM Provider Appointment Comment: [address] [facility] [address] [facility] ([place], [place]), [place] [address] Smoking Cessation Counseling Tobacco Cessation Medication Prescribed at Discharge: Not Applicable/Non-Smoker Contact Information Discharge Discharge Address: [facility] [address], [place] [address] Discharge Plan Discharge Items Patient Disposition: Home - Self-Care Reason For Visit: DEPRESSION Discharge Diagnosis: major depressive disorder Activity: Resume your previous activity Non-emergency contact: Primary Care Provider, Psychiatrist and Therapist Call non-emergency contact if: you have any medication questions and your symptoms worsen Follow-up/Referrals: Vini So MD [Primary Care Provider] - Diet: Regular Fluids: 1500ml (6 cups) Addtl Attending Provider Instructions: SPECIAL CARE INSTRUCTIONS: 1. Follow through with your scheduled aftercare appointments. If unable to keep an appointment, please call to reschedule. 2. Take your medication only as prescribed. Medication should not be changed or stopped without the approval of your doctor. In the event of worsening symptoms or concerns about side effects, contact your doctor immediately. 3. Utilize new healthy coping skills, anger management skills, and stress management skills learned during your hospitalization. Journal feelings and process them with a support person. Identify stressors or situations that may result in relapse, deterioration or inappropriate behaviors and develop a plan to deal with those issues. 4. If your coping skills are ineffective and you are in crisis, contact your outpatient providers for direction. If unable to reach your providers, please call the [facility] CRISIS LINE AT , go to the [facility] walk-in center at [address], [address], [place], or go to the closest Emergency Room. 5. Avoid alcohol and un-prescribed drugs. 6. You have been provided with the Mental Health Advance Directives Pamphlet for your review. 7. Your condition is stable for discharge to outpatient level of care, but recovery is an ongoing process. Ifthoughts to harm yourself or others return, follow the safety plan developed during your stay. Planning for a safe return home includes securing weapons. Our treatment team recommends weaponsbe removed from the home until your outpatient provider reassesses your progress. In rare cases where the items themselvescannot be removed, guns and ammunitionshould be secured separatelyand keys stored by a reliable personoutside of the home. If you were admitted on an involuntary commitment, the police or other legal authorities may be involved in this process. AFTERCARE APPOINTMENTS: * Please call your insurance company prior to your scheduled appointment to confirm your aftercare providers are covered. Take your insurance information to your appointments. WHO TO CALL AND WHEN: Medical Emergencies: For questions or emergencies related to your hospital stay, please contact the Inpatient Behavioral Health Unit at [phone]. A simulation engineer is on-call 20/09 for the Behavioral Health Unit for emergencies At any time you feel your situation is an emergency, you may also call 911 immediately. Addtl Stock Worker Provider Instructions: please take 3grams sodium twice a day. A prescription was sent to your pharmacy for this. Pending Studies at Discharge: No (but will need follow up sodium level by PCP) Stand-Alone Forms: [facility] Medications and DC Order Prescriptions: New buspirone 5 mg Tablet 5 mg PO PC 30 Days Qty: 30 0RF sodium chloride 1 gram Tablet 3 g PO BID 30 Days Qty: 180 0RF Continued clopidogrel 75 mg tablet 75 mg PO QAM Eliquis 5 mg tablet 5 mg PO BID calcium citrate-vitamin D3 [Citracal + D Maximum] 315 mg-6.25 mcg (250 unit) tablet 1 tab PO QAM latanoprost 0.005 % drops 1 drp ophthalmic (eye) PM montelukast 10 mg tablet 10 mg PO QPM Multaq 400 mg tablet 400 mg PO BIDM Rx Instructions: must administer with a meal/food pentoxifylline 400 mg tablet extended release 400 mg PO BIDM Rx Instructions: must administer with a meal/food rosuvastatin 10 mg tablet 10 mg PO DAILY tamsulosin 0.4 mg capsule 0.4 mg PO HS nystatin-triamcinolone 100,000-0.1 unit/g-% cream 1 applic topical DAILY PRN (Reason: Rash) sertraline 50 mg Tablet 50 mg PO QAM Qty: 1 0RF melatonin 3 mg Tablet 3 mg PO HS benazepril 40 mg Tablet 20 mg PO BID coenzyme Q10 [Co Q-10] 100 mg Capsule 100 mg PO QAM omega-3 fatty acids Capsule 1,000 mg PO QAM omeprazole 40 mg Capsule,Delayed Release(Dr/Ec) 40 mg PO HS metoprolol succinate 25 mg Tablet Extended Release 24 Hr 25 mg PO PM Discontinued alprazolam 0.25 mg tablet 0.25 mg PO DAILY PRN (Reason: Anxiety) Discharge Orders: Discharge Order (Routine); Ordered 01/30/22 Ordered By: Miriam Vo Admission Data Admit Date/Time: 01/24/22 16:16 Attending Provider: Miriam Vo Admit Provider: Miriam Vo Primary Care Provider: Vini So Other Providers: Jj Cheek Other Interventions: Discharge Summary Assessment (RN) Last Done: 01/30/22 11:21 PSY Interdisciplinary Discharge Planning Last Done: 01/30/22 11:23 Coding Level of Care Code 97448 D/C day mgmt > 30 min Diagnoses 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
[2022-01-30 10:30] LABS: BUN Creatinine Ratio 18.5 (10-20); Calcium 9.4 mg/dl (8.5-10.1); Creatinine Clr Calc Pharmacy 59.2 ml/min; Est GFR (African American) 64.6 ml/min; Est GFR (Non-African American) 55.7 ml/min; Potassium 4.2 mmol/L (3.5-5.1)
== END 2022-01-30 12:10 | disposition home or self-care (01) | DRG 885 ==
LOC: 3S 16:16 → SUATTDRO 16:16